=== PATIENT | female | born 1945 | race Hispanic/Latino ===

== ENCOUNTER → 2018-03-26 | Day surgery (SDC) | payer MEDICARE, OTHER ==
[2018-03-23 14:25] LABS: BASOPHILS % 0.4 % (0.0-1.0); EOSINOPHILS % 0.2 % (0.0-6.0); HEMATOCRIT 43.4 % (34.2-44.1); HEMOGLOBIN 13.7 g/dL (12.0-16.0); LYMPHOCYTES # (AUTO) 1.5 (1.0-3.2); LYMPHOCYTES % 33.9 % (18.0-39.1); MEAN CORPUSCULAR HEMOGLOBIN 28.4 pg (28-32); MEAN CORPUSCULAR HGB CONC 31.6 g/dL (31-35); MEAN CORPUSCULAR VOLUME 89.9 fL (81-99); MONOCYTES # (AUTO) 0.3 (0.2-0.8); MONOCYTES % 6.9 % (4.4-11.3); NEUTROPHILS # (AUTO) 2.6 (2.1-6.9); NEUTROPHILS % 57.3 % (38.7-80.0); PLATELET COUNT 117 x10e3/uL (140-360); RED BLOOD COUNT 4.83 x10e6/uL (3.6-5.1); RED CELL DISTRIBUTION WIDTH 15.7 % (11.7-14.4)
--- NOTE | 2018-03-23 14:36 | Diagnostic Imaging Report ---
PROCEDURE: X-RAY CHEST, TWO VIEWS COMPARISON: Patients [facility], DX, CHEST 2 VIEWS, 05/25/2015, 12:20. INDICATIONS: PORT O CATH REMOVAL PRE OP FINDINGS: Lines/tubes: MediPort catheter has been placed in the right chest wall with catheter tip in SVC. No pneumothorax. LUNGS: No consolidations or edema. PLEURA: No effusions or pneumothorax. Central eventration of right diaphragm is stable. HEART \T\ MEDIASTINUM: The heart is within normal size-limits. BONES \T\ SOFT TISSUES: No focal osseous lesions. Cholecystectomy clips are stable. CONCLUSION: No acute thoracic abnormality. Other findings as described above. Dictated by: Sohan Sosa M.D. on 03/23/2018 at 14:39 Electronically approved by: Sohan Sosa M.D. on 03/23/2018 at 14:39
[2018-03-23 14:41] LABS: ANION GAP 11.5 mmol/L (8-16); BLOOD UREA NITROGEN 17 mg/dL (7-26); BUN/CREATININE RATIO 22 (6-25); CALCIUM 9.8 mg/dL (8.4-10.2); CARBON DIOXIDE 27 mmol/L (22-29); CHLORIDE 107 mmol/L (98-107); CREATININE, SERUM 0.79 mg/dL (0.57-1.11); EST GLOMERULAR FILTRATION RATE > 60 ML/MIN (60-); GLUCOSE 88 mg/dL (74-118); POTASSIUM 3.5 mmol/L (3.5-5.1); SODIUM 142 mmol/L (136-145)
[~2018-03-26] MED LIST: ALLOPURINOL PO; BENAZEPRIL HCL10 MG PO; BENAZEPRIL PO; BUPIVACAINE 0.25%/EPI 30ML SDV INJ ONE; CEFAZOLIN SOD 1 GM VIAL ONE; DEXAMETHASONE SOD PHOS INJ 4 MG/ML VIAL ONE; FENTANYL CITRATE/PF 100MCG/2 ML INJ ONE; LEVOTHYROXINE PO; LEVOTHYROXINE50 MCG PO; LIDOCAINE HCL 2% LOCAL INJ 5 ML SDV VIAL INJ ONE; METOCLOPRAMIDE HCL 10 MG/2ML VIAL ONE; MIDAZOLAM HCL 2 MG/2 ML VIAL ONE; MYRBETRIQ50 MG PO; OMEPRAZOLE PO; OMEPRAZOLE40 MG PO; ONDANSETRON HCL INJ 2 MG/ML VIAL ONE; PROPOFOL IV EMULSION 10 MG/ML 20 ML VIAL ONE; SEVOFLURANE INHAL SOLN 250 ML PEN BTL ONE
--- OUTSIDE RECORDS SUMMARY | 2018-03-26 07:24 | XMS REPORT | Clinical Summary ---
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 Disp. Refills Start End Date Status Date benazepril (LOTENSIN) 5 every morning. 0 04/26/20 Active MG tablet 17 levothyroxine (SYNTHROID, every morning. 0 04/10/20 Active LEVOXYL) 25 mcg tablet 17 omeprazole (PriLOSEC) 20 Take 20 mg by mouth Active MG capsule daily. azelastine (ASTELIN) 137 U 1 SPR IEN BID 09/25/20 Active mcg (0.1 %) nasal spray 17 fexofenadine (NEIL) Take by mouth daily. Active 180 MG tablet acetaminophen (TYLENOL) Take 325 mg by mouth Active 325 MG tablet every 6 (six) hours as needed for fever. ERTAPENEM SODIUM (INVANZ Infuse 1,000 mg into a 07/23/20 Discontin IV) venous catheter daily. 17 ued except Monday and monday traMADol (ULTRAM) 50 mg Take 1 tablet (50 mg 60 tablet 0 10/19/20 Discontin tablet total) by mouth every 6 17 17 ued (six) hours as needed for moderate pain for up to 30 days. traMADol (ULTRAM) 50 mg Take 1 tablet (50 mg 60 tablet 0 10/19/20 Discontin tablet total) by mouth every 6 17 17 ued (six) hours as needed for moderate pain for up to 30 days. doxycycline (VIBRAMYCIN) 03/05/20 03/26/20 Discontin 100 MG capsule 18 18 ued Hospital, Clinic, or Ordered Dose Route Frequency Start End Date Status Other Facility Date Administered Medication cefTRIAXone (ROCEPHIN) 1 g IV once 01/16/20 01/16/20 Discontin injection 1 g 18 18 ued Active Problems Problem Noted Date UTI (urinary tract infection) 10/11/2017 Complicated urinary tract infection 08/11/2017 Urinary tract infection, recurrent 08/10/2017 Hydronephrosis with infection 07/17/2017 Encounters Date Type Specialty Care Team Description 01/15/2018 [facility] Urology Meng Cleary MD Encounter 01/15/2018 Procedure Pass Urology 01/15/2018 Surgery UrologMeng Louise MD CYSTOSCOPY BILATERAL URETERAL CATHETERIZATION 01/12/2018 [facility] [place] 01/10/2018 Pre-Admit Pre-Admission Testing Meng Cleary MD Pre- op testing (Primary Testing Dx) Appointment 11/29/2017 [facility] General Internal Medicine Meng Cleary MD - Encounter 12/08/2017 10/17/2017 Procedure Pass Urology 10/17/2017 Surgery Urology Emanuel Jane MD CYSTO , REMOVAL URETERAL STENT 10/11/2017 [facility] General Internal Medicine Mann Park MD Acute cystitis without - Encounter hematuria (Primary Dx); 10/19/2017 Hydronephrosis with infection 10/11/2017 Orders Only General Internal Medicine Mann Park MD 08/14/2017 Procedure Pass Urology 08/14/2017 Surgery Urology Meng Cleary MD CYSTO BILATERAL RETROGRADE POLYLOGRAM AND RIGHT STENT EXCHNAGE 08/13/2017 Anesthesia Urology Selvin Akhtar MD Event 08/09/2017 [facility] Obstetrics and Gynecology Meng Cleary MD - Encounter 08/19/2017 08/08/2017 Orders Only UrologMeng Louise MD 08/07/2017 Telephone Infectious Diseases Jessica Reaves RN 08/04/2017 Lab Lab Meng Cleary MD 07/19/2017 Procedure Pass Urology 07/19/2017 Surgery Urology eMng Cleary MD CYSTOSCOPY, RIGHT RETROGRADE PYELOGRAM, RIGHT URETERAL STENT EXCHANGE 07/17/2017 [facility] General Internal Medicine Meng Cleary MD Urinary tract infection - Encounter with hematuria, site 07/23/2017 unspecified (Primary Dx); Essential hypertension; Hypothyroidism, unspecified type; Hydronephrosis with infection 07/17/2017 Documentation Urology Meng Cleary MD 07/12/2017 Pre-Admit Pre-Admission Testing Meng Cleary MD Preop testing (Primary Testing Dx) Appointment 07/12/2017 Anesthesia Urology Taryn Kessler, APOLLO Event after 03/25/2017 Immunizations Name Dates Previously Given Next Due FLUCELVAX QUAD PF (0.5mL 07/17/2017 syringe) Social History Tobacco Use Types Packs/Day Years Used Date Never Smoker Smokeless Tobacco: Never Used Alcohol Use Drinks/Week oz/Week Comments No Sex Assigned at Date Recorded Not on file Last Filed Vital Signs Vital Sign Reading Time Taken Blood Pressure 127/60 01/15/2018 3:00 PM CDT Pulse 68 01/15/2018 3:00 PM CDT Temperature 36.8 C (98.2 F) 01/15/2018 3:00 PM CDT Respiratory Rate 14 01/15/2018 3:00 PM CDT Oxygen Saturation 96% 01/15/2018 3:00 PM CDT Inhaled Oxygen - - Concentration Weight 69.9 kg (154 lb 3.2 oz) 01/15/2018 12:12 PM CDT Height 157.5 cm (5' 2") 01/10/2018 11:52 AM CDT Body Mass Index 28.2 01/15/2018 12:12 PM CDT Plan of Treatment Health Maintenance Due Date Last Done Comments BREAST CANCER SCREENING 1997 COLON CANCER SCREENING 1997 SHINGRIX VACCINE (#1) 1997 ZOSTER VACCINE 2007 PNEUMOCOCCAL 2012 POLYSACCHARIDE VACCINE AGE 65 AND OVER PNEUMOCOCCAL-13 2012 INFLUENZA VACCINE 05/23/2018 07/17/2017 Implants Implanted Type Area Rotary Cutter Device Expiration Model / Identifier Date Serial / Lot Catheter Uretl 6/10fr 50cm Flx-Tp Surgical N/A: N/A [employer] [id number] / Dlmn Std Accs - [id number] Implants; / Implanted: 08/14/2017 (Quantity not Expanders; on file) Extenders; Surgical Wires Stent Uretl S-Flx [place] [facility] N/A: N/A [place] [employer] 2018 [id number] / Retro-Inject 8.2fr 22-32cm Mltlen - Implants / [id number] or Sets [id number] Implanted: 07/19/2017 (Quantity not on file) Stent Uretl S-Flx [place] [facility]rological N/A: N/A [place] [employer] 2019 [id number] / Retro-Inject 8.2fr 22-32cm Mltlen - Implants / [id number] or Sets [id number] Implanted: 08/14/2017 (Quantity not on file) Port A Cath Procedures Procedure Name Priority Date/Time Associated Diagnosis Comments SD AN ELECTIVE Routine 01/15/2018 SUPRAGLOTTIC AIRWAY 1:41 PM CDT Procedure Note - Regla Posey CRNA - 01/15/2018 1:41 PM CDT Airway Date/Time: 01/15/2018 1:31 PM Performed by: REGLA POSEY Authorized by: TYE MANCUSO Location: OR Urgency: Elective Difficult Airway: No Resident/C RNA/AA: REGLA POSEY Performed by: resident/C RNA/AA Preoxygena gigi with 100% O2: Yes Mask Ventilatio n: Not attempted Final Airway Type: Supraglott ic airway Final LMA: Classic LMA Size: 4 Number of Attempts at Approach: 1 CYSTOSCOPY BILATERAL 01/15/2018 UTI (urinary tract URETERAL CATHETERIZATION 1:30 PM CDT infection) Special Needs REQ 1330 START, EST 1HR CYSTO , REMOVAL URETERAL 10/17/2017 Right Hydronephrosis STENT 3:25 PM 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 SD AN ELECTIVE Routine 08/14/2017 SUPRAGLOTTIC AIRWAY 2:01 PM CDT Procedure Note - Kavon Mittal CRNA - 08/14/2017 2:01 PM CDT Airway Date/Time: 08/14/2017 1:51 PM Performed by: KAVON MITTAL Authorized by: JUDI CHILD Location: OR Urgency: Elective Difficult Airway: No Resident/C RNA: KAVON MITTAL Performed by: resident/C RNA Preoxygena gigi with 100% O2: Yes C-spine Precaution s Maintained Throughout : Yes Mask Ventilatio n: Easy mask Final Airway Type: Supraglott ic airway Final LMA: Classic LMA Size: 4 Number of Attempts at Approach: 2 CYSTO BILATERAL 08/14/2017 RIGHT HYDRONEPHROSIS AND RETROGRADE POLYLOGRAM AND 2:00 PM CDT UTI RIGHT STENT EXCHNAGE SD AN ELECTIVE Routine 07/19/2017 SUPRAGLOTTIC AIRWAY 10:42 AM CDT Procedure Note - Regla Posey [facility] - 07/19/2017 10:42 AM CDT Airway Date/Time: 07/19/2017 10:42 AM Performed by: REGLA POSEY Authorized by: ETHAN RETANA Location: OR Urgency: Elective Difficult Airway: No Resident/C RNA: REGLA POSEY Performed by: resident/C RNA Preoxygena gigi with 100% O2: Yes C-spine Precaution s Maintained Throughout : Yes Mask Ventilatio n: Easy mask Final Airway Type: Supraglott ic airway Final LMA: Classic LMA Size: 4 Number of Attempts at Approach: 1 CYSTOSCOPY, RIGHT 07/19/2017 Hydronephrosis of right RETROGRADE PYELOGRAM, 10:00 AM CDT kidney RIGHT URETERAL STENT EXCHANGE Special Needs REQ 0715 START after 03/25/2017 Results * OR FL < 1 Hour (01/15/2018 2:18 PM) Specimen Performing Laboratory [facility] [address] [place] [address] Narrative EXAMINATION:OR [place] 1 HOUR C-arm fluoroscopy was requested in OR. START - 1345 FINISH - 1418 FLUORO - 15 SEC 8.2 mGR 0 FILMS CYSTOSCOPY MAIN OR CYSTO 2 AM IMPRESSION: Separate operative report will be issued by the physician performing the procedure. [id number] Procedure Note Interface, Radiology Results Incoming - 01/15/2018 10:21 PM CDT EXAMINATION: OR FL 1 HOUR C-arm fluoroscopy was requested in OR. START - 1345 FINISH - 1418 FLUORO - 15 SEC 8.2 mGR 0 FILMS CYSTOSCOPY MAIN OR CYSTO 2 AM IMPRESSION: Separate operative report will be issued by the physician performing the procedure. [id number] * Gram stain (01/15/2018 1:54 PM) Only the most recent of 13 results within the time period is included. Component Value Ref Range Gram stain result Occasional WBC's Moderate Gram negative rods Comment: Specimen Information Specimen Source: Urine Specimen Site: Kidney right Specimen Performing Laboratory Urine [facility] DEPARTMENT OF PATHOLOGY AND GENOMIC MEDICINE [address] [place] [address] * Urine culture (01/15/2018 1:54 PM) Only the most recent of 13 results within the time period is included. Component Value Ref Range Urine culture isolate Pseudomonas aeruginosa >10-5 cfu/ml This organism is multi-drug resistant. This organism is NOT a carbapenemase producing organism. (A) Comment: Specimen Information Specimen Source: Urine Specimen Site: Kidney right Specimen Performing Laboratory Urine [facility] DEPARTMENT OF PATHOLOGY AND GENOMIC MEDICINE [address] [place] [address] Organism Antibiotic Method Susceptibility Pseudomonas aeruginosa Amikacin SANJUANA 8 mcg/mL: Susceptible Pseudomonas aeruginosa Aztreonam SANJUANA >16 mcg/mL: Resistant Pseudomonas aeruginosa Ceftazidime SANJUANA 16 mcg/mL: Resistant Pseudomonas aeruginosa Ciprofloxacin SANJUANA >2 mcg/mL: Resistant Pseudomonas aeruginosa Cefipime SANJUANA >16 mcg/mL: Resistant Pseudomonas aeruginosa Gentamicin SANJUANA 8 mcg/mL: Resistant Pseudomonas aeruginosa Imipenem SANJUANA 8 mcg/mL: Resistant Pseudomonas aeruginosa Levofloxacin SANJUANA >4 mcg/mL: Resistant Pseudomonas aeruginosa Meropenem SANJUANA >8 mcg/mL: Resistant Pseudomonas aeruginosa Tobramycin SANJUANA 2 mcg/mL: Susceptible Pseudomonas aeruginosa Piperacillin/Tazobactam SANJUANA 64/4 mcg/mL: Resistant Pseudomonas aeruginosa Polymixin B KB mm: Susceptible Pseudomonas aeruginosa Ceftazidime-Avibactam KB mm: Susceptible Pseudomonas aeruginosa Ceftolozane-Tazobactam KB mm: Susceptible * Anaerobic culture (01/15/2018 1:54 PM) Only the most recent of 3 results within the time period is included. Component Value Ref Range Anaerobic culture isolate No anaerobic organisms isolated. Comment: Specimen Information Specimen Source: Urine Specimen Site: Kidney right Specimen Performing Laboratory Urine [facility] DEPARTMENT OF PATHOLOGY AND GENOMIC MEDICINE [address] [place] [id number] * ECG Pre/Post Op (01/10/2018 11:48 AM) Only the most recent of 2 results within the time period is included. Component Value Ref Range Ventricular rate 77 Atrial rate 77 SD interval 116 QRSD interval 78 QT interval 384 QTC interval 434 P axis 1 19 QRS axis 1 -4 T wave axis 42 EKG impression Normal sinus rhythm-Low voltage QRS-Borderline ECG-In automated comparison with ECG of 12-JUL-2017 17:03,-No significant change was found- Specimen Performing Laboratory [facility] MUSE [address] [place] [address] * Urinalysis screen and microscopy, with reflex to culture (01/10/2018 11:27 AM) Only the most recent of 9 results within the time period is included. Component Value Ref Range Specimen site Clean catch Color, UA Straw Appearance, UA Hazy Specific gravity, UA 1.008 1.001 - 1.035 pH, UA 7.0 5.0 - 8.5 Protein, UA Negative Negative Glucose, UA Negative Negative Ketones, UA Negative Negative Bilirubin, UA Negative Negative Blood, UA Small (A) Negative Nitrite, UA Negative Negative Urobilinogen, UA <2.0 <2.0 Leukocyte esterase, UA Large (A) Negative Epithelial cells, UA <1 /HPF WBC, UA >180 (H) 0 - 4 /HPF RBC, UA 3 (H) 0 - 2 /HPF Bacteria, UA Moderate (A) None seen WBC clumps, UA Few (A) Yeast, UA None seen Yeast with pseudohyphae, None seen UA Specimen Performing Laboratory Urine [facility] DEPARTMENT OF PATHOLOGY AND GENOMIC MEDICINE [address] [place] [address] * Estimated GFR (01/10/2018 11:27 AM) Only the most recent of 19 results within the time period is included. Component Value Ref Range GFR Non Af Amer 83 mL/min/1.73 m2 GFR Af Amer >90 mL/min/1.73 m2 Comment: Chronic kidney disease: <60 mL/min/1.73m2 Kidney failure: <15 mL/min/1.73m2 The estimated GFR is calculated from the IDMS-traceable Modification of Diet in Renal Disease Equation. The accuracy of the calculation is poor when the creatinine is normal. Calculated values >90 mL/min/1.73m2 are not reported. This equation has not been validated in children (<18 years), women, the elderly (>70 years), or ethnic groups other than Caucasians and Americans. Specimen Performing Laboratory Plasma specimen [facility] DEPARTMENT OF PATHOLOGY AND GENOMIC MEDICINE [address] [place] [id number] * CBC hemogram (01/10/2018 11:27 AM) Component Value Ref Range WBC 4.86 4.50 - 11.00 k/uL RBC 4.30 4.20 - 5.50 m/uL HGB 12.4 12.0 - 16.0 g/dL HCT 39.4 37.0 - 47.0 % MCV 91.6 82.0 - 100.0 fL MCH 28.8 27.0 - 34.0 pg MCHC 31.5 31.0 - 37.0 g/dL RDW - SD 49.6 37.0 - 55.0 fL MPV 10.9 8.8 - 13.2 fL Platelet count 159 150 - 400 k/uL Nucleated RBC 0.00 /100 WBC Specimen Performing Laboratory Blood [facility] DEPARTMENT OF PATHOLOGY AND GENOMIC MEDICINE [address] [place] [address] * Comprehensive metabolic panel (01/10/2018 11:27 AM) Only the most recent of 6 results within the time period is included. Component Value Ref Range Sodium 143 135 - 148 mEq/L Potassium 3.9 3.5 - 5.0 mEq/L Chloride 102 98 - 112 mEq/L CO2 28 24 - 31 mEq/L Anion gap 13 7 - 15 mEq/L Comment: Starting from January , anion gap calculation no longer incorporates potassium. Please note the change. BUN 14 8 - 23 mg/dL Creatinine 0.7 0.5 - 0.9 mg/dL Glucose 92 65 - 99 mg/dL Calcium 9.4 8.8 - 10.2 mg/dL Protein 7.0 6.3 - 8.3 g/dL Comment: 4.6-7.0 g/dL 1 week 4.4-7.6 g/dL 7 months-1year 5.1-7.3 g/dL 1-2 years 5.6-7.5 g/dL >3 years 6.0-8.0 g/dL 18-150 6.3-8.3 g/dL Albumin 3.3 (L) 3.5 - 5.0 g/dL A/G ratio 0.9 0.7 - 3.8 Alkaline phosphatase 122 (H) 35 - 104 U/L AST 49 (H) 10 - 35 U/L ALT 34 5 - 50 U/L Total bilirubin 0.4 0.0 - 1.2 mg/dL Specimen Performing Laboratory Plasma specimen [facility] DEPARTMENT OF PATHOLOGY AND GENOMIC MEDICINE [address] [place] [address] * CBC with platelet and differential (12/06/2017 4:10 AM) Only the most recent of 18 results within the time period is included. Component Value Ref Range WBC 3.93 (L) 4.50 - 11.00 k/uL RBC 3.64 (L) 4.20 - 5.50 m/uL HGB 10.6 (L) 12.0 - 16.0 g/dL HCT 34.3 (L) 37.0 - 47.0 % MCV 94.2 82.0 - 100.0 fL MCH 29.1 27.0 - 34.0 pg MCHC 30.9 (L) 31.0 - 37.0 g/dL RDW - SD 52.4 37.0 - 55.0 fL MPV 9.9 8.8 - 13.2 fL Platelet count 182 150 - 400 k/uL Nucleated RBC 0.00 /100 WBC Neutrophils 48.5 39.0 - 69.0 % Lymphocytes 38.7 25.0 - 45.0 % Monocytes 8.4 0.0 - 10.0 % Eosinophils 1.3 0.0 - 5.0 % Basophils 0.8 0.0 - 1.0 % Immature granulocytes 2.3 (H)Comment: "Immature granulocytes" 0.0 - 1.0 % (promyelocytes, myelocytes, metamyelocytes) Specimen Performing Laboratory Blood [facility] DEPARTMENT OF PATHOLOGY AND [address] [address] * Cortisol level, random (12/05/2017 9:30 AM) Only the most recent of 3 results within the time period is included. Component Value Ref Range Cortisol, random 13 ug/dL Comment: Reference Ranges are not established for non-timed Cortisol levels. Reference Range for Timed Cortisol: 6 - 10 AM 6 - 18 ug/dl 4 - 8 PM 3 - 11 ug/dl Specimen Performing Laboratory Plasma specimen [facility] DEPARTMENT OF PATHOLOGY AND GENOMIC MEDICINE [address] [place] [phone] * LDH (12/05/2017 8:35 AM) Component Value Ref Range LDH 209 87 - 225 U/L Specimen Performing Laboratory Plasma specimen [facility] DEPARTMENT OF PATHOLOGY AND [address] [address] * Hepatic function panel (12/05/2017 8:35 AM) Only the most recent of 2 results within the time period is included. Component Value Ref Range Albumin 3.0 (L) 3.5 - 5.0 g/dL Total bilirubin <0.2 0.0 - 1.2 mg/dL Bilirubin direct <0.2 0.0 - 0.3 mg/dL Alkaline phosphatase 99 35 - 104 U/L Protein 6.6 6.3 - 8.3 g/dL Comment: 4.6-7.0 g/dL 1 week 4.4-7.6 g/dL 7 months-1year 5.1-7.3 g/dL 1-2 years 5.6-7.5 g/dL >3 years 6.0-8.0 g/dL 18-150 6.3-8.3 g/dL ALT 17 5 - 50 U/L AST 25 10 - 35 U/L Specimen Performing Laboratory Plasma specimen [facility] DEPARTMENT OF PATHOLOGY AND [facility] [address] [place] [phone] * Adrenocorticotropic hormone (12/05/2017 8:25 AM) Component Value Ref Range Adrenocorticotropic 11.7 7.2 - 63.3 pg/mL hormone Specimen Performing Laboratory Blood [facility] DEPARTMENT [place] [address] * Basic metabolic panel (12/05/2017 4:00 AM) Only the most recent of 13 results within the time period is included. Component Value Ref Range Sodium 142 135 - 148 mEq/L Potassium 3.8 3.5 - 5.0 mEq/L Chloride 103 98 - 112 mEq/L CO2 26 24 - 31 mEq/L Anion gap 13 7 - 15 mEq/L Comment: Starting from January , anion gap calculation no longer incorporates potassium. Please note the change. BUN 16 8 - 23 mg/dL Creatinine 0.7 0.5 - 0.9 mg/dL Glucose 122 (H) 65 - 99 mg/dL Calcium 9.1 8.8 - 10.2 mg/dL Specimen Performing Laboratory Plasma specimen [facility] DEPARTMENT OF PATHOLOGY AND [facility] [address] [place] [address] * XR Abdomen 1 Vw Portable (12/02/2017 11:40 AM) Specimen Performing Laboratory [address] [address] Narrative PROCEDURE:XR ABDOMEN 1 VW PORTABLE CLINICAL HISTORY:Distention COMPARISON:August 11, 2017 TECHNIQUE: A single view of the abdomen was performed in the AP supine projection. FINDINGS: Please note that the hemidiaphragms and upper abdomen have been excluded from the image field and cannot be evaluated. No indirect evidence of free air is seen.. No distended loops of small or large bowel are identified. No radiopaque calculus is identified in the abdomen. Curvilinear calcification is seen in the region of the left renal hilum representing a calcified atheromatous plaque. Aneurysm is identified on the recent CT scan of the abdomen performed October 14, 2017 Multiple surgical emily are seen projected over the right upper quadrant of the abdomen consistent with prior cholecystectomy. IMPRESSION: Nonspecific bowel gas pattern. [id number] . 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 FINDINGS: Please note that the hemidiaphragms and upper abdomen have been excluded from the image field and cannot be evaluated. No indirect evidence of free air is seen.. No distended loops of small or large bowel are identified. No radiopaque calculus is identified in the abdomen. Curvilinear calcification is seen in the region of the left renal hilum representing a calcified atheromatous plaque. Aneurysm is identified on the recent CT scan of the abdomen performed October 14, 2017 Multiple surgical emily are seen projected over the right upper quadrant of the abdomen consistent with prior cholecystectomy. IMPRESSION: Nonspecific bowel gas pattern. [id number] . * Urinalysis, automated with microscopy (12/01/2017 4:00 PM) Only the most recent of 5 results within the time period is included. Component Value Ref Range Color, UA Straw Appearance, UA Clear Specific gravity, UA 1.004 1.001 - 1.035 pH, UA 6.0 5.0 - 8.5 Protein, UA Negative Negative Glucose, UA Negative Negative Ketones, UA Negative Negative Bilirubin, UA Negative Negative Blood, UA Negative Negative Nitrite, UA Negative Negative Urobilinogen, UA <2.0 <2.0 Leukocyte esterase, UA Negative Negative Epithelial cells, UA <1 /HPF WBC, UA 3 0 - 4 /HPF RBC, UA <1 0 - 2 /HPF Bacteria, UA None seen None seen Yeast, UA None seen Yeast with pseudohyphae, None seen UA Specimen Performing Laboratory Urine [facility] DEPARTMENT OF PATHOLOGY AND GENOMIC MEDICINE [address] [place] [phone] * Cortisol level, AM (11/30/2017 11:32 AM) Component Value Ref Range Cortisol, AM 2 (L) 6 - 18 ug/dL Specimen Performing Laboratory Plasma specimen [facility] DEPARTMENT [place] [address] * Thyroid stimulating hormone (11/30/2017 11:32 AM) Only the most recent of 4 results within the time period is included. Component Value Ref Range TSH 2.21 0.27 - 4.20 uIU/mL Specimen Performing Laboratory Plasma specimen [facility] DEPARTMENT [place] [address] * T4, free (11/30/2017 11:32 AM) Only the most recent of 3 results within the time period is included. Component Value Ref Range T4, free 1.3 0.9 - 1.7 ng/dL Specimen Performing Laboratory Plasma specimen [facility] DEPART[place] [address] * Immunoglobulin G (11/30/2017 11:01 AM) Component Value Ref Range IgG <300 (L) 700 - 1,600 mg/dL Specimen Performing Laboratory Plasma specimen [facility] DEPARTMENT [place] [address] * US Renal (11/29/2017 4:40 PM) Only the most recent of 3 results within the time period is included. Specimen Performing Laboratory [facility] [address] [place] [address] Narrative EXAMINATION:US RENAL CLINICAL HISTORY:HYDRONEPHROSIS TECHNIQUE: Sonographic imaging over the kidneys was performed. COMPARISON:CT of the abdomen and pelvis dated 10/14/2017 FINDINGS: 1.The right kidney is normal size measuring 10.3 cm in long axis. The kidney has normal echogenicity. Vascular flow is unremarkable. There is no evidence of hydronephrosis, perinephric fluid, mass or calculus. 2.The left kidney isnormal size measuring 10.6 cm in long axis. The kidney has normal echogenicity. Vascular flow is unremarkable. There is no evidence of hydronephrosis, perinephric fluid, mass or calculus. 3.The bladder is unremarkable. IMPRESSION: No evidence of hydronephrosis. [facility]-[id number] Procedure Note Hm Interface, Radiology Results Incoming - 11/29/2017 4:58 PM 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 EXAMINATION: US RENAL CLINICAL HISTORY: HYDRONEPHROSIS TECHNIQUE: Sonographic imaging over the kidneys was performed. COMPARISON: CT of the abdomen and pelvis dated 10/14/2017 FINDINGS: 1. The right kidney is normal size measuring 10.3 cm in long axis. The kidney has normal echogenicity. Vascular flow is unremarkable. There is no evidence of hydronephrosis, perinephric fluid, mass or calculus. 2. The left kidney is normal size measuring 10.6 cm in long axis. The kidney has normal echogenicity. Vascular flow is unremarkable. There is no evidence of hydronephrosis, perinephric fluid, mass or calculus. 3. The bladder is unremarkable. IMPRESSION: No evidence of hydronephrosis. [facility]-[id number] * Blood culture, aerobic & anaerobic (11/29/2017 1:25 PM) Only the most recent of 6 results within the time period is included. Component Value Ref Range Blood culture isolate No growth after 5 days of incubation. Comment: Specimen Information Specimen Source: Blood Specimen Site: Arm, right Specimen Performing Laboratory Blood - Arm, right [facility] DEPARTMENT OF PATHOLOGY AND GENOMIC MEDICINE [address] [place] [address] * Smear review (10/19/2017 4:40 AM) Only the most recent of 3 results within the time period is included. Component Value Ref Range Platelet slide review Carrie slt decr Anisocytosis Moderate Polychromasia Moderate Tear drop cells Occasional Ovalocytes Moderate Specimen Performing Laboratory [facility] DEPARTMENT OF PATHOLOGY AND GENOMIC MEDICINE [address] [place] [address] * Respiratory pathogen panel (10/18/2017 5:12 PM) Component Value Ref Range Respiratory pathogen Positive for Rhinovirus/Enterovirus panel Negative for all other pathogens tested: Negative for Adenovirus Negative for Coronavirus HKU1 Negative for Coronavirus NL63 Negative for Coronavirus 229E Negative for Coronavirus OC43 Negative for Human Metapneumovirus Negative for Influenza A Negative for Influenza A/H1 Negative for Influenza A/H3 Negative for Influenza A/H1-2009 Negative for Influenza B Negative for Parainfluenza Virus 2 Negative for Parainfluenza Virus 3 Negative for Parainfluenza Virus 4 Negative for Respiratory Syncytial Virus Negative for Bordetella pertussis Negative for Chlamydophila pneumoniae Negative for Mycoplasma pneumoniae This real-time PCR assay detects the presence of nucleic acids (RNA or DNA) for the respiratory pathogens listed. A result of "Not-detected" does not exclude the possibility of the presence of one or more pathogens at concentrations less than the detectable limits of the assa (A) Comment: Specimen Information Specimen Source: Nares Specimen Site: Left Respiratory pathogen Positive for Parainfluenza 1 virus (A) panel Specimen Performing Laboratory Nares - Left [facility] DEPARTMENT OF PATHOLOGY AND GENOMIC MEDICINE [address] [place] [id number] * Estradiol by TMS (10/15/2017 9:55 AM) Component Value Ref Range Estradiol by TMS 1.8 pg/mL Comment: Females: Pre-menopausal: Early follicular 30.0-100.0 pg/mL Pre-menopausal: Late follicular 100.0-400.0 pg/mL Pre-menopausal: Luteal 50.0-150.0 pg/mL Post-menopausal 2.0-21.0 pg/mL REFERENCE INTERVAL: Estradiol by TMS Access complete set of age- and/or gender-specific reference intervals for this test in the [facility] Test Directory (everyArt). Test developed and characteristics determined by [facility]. See Compliance Statement B: everyArt/CS Performed by [facility], [address] [place] [id number] [email or web address], Jeovany Salguero MD - Lab. Director Specimen Performing Laboratory Serum [address] [address] * Cancer antigen 19-9 (10/15/2017 9:55 AM) Only the most recent of 2 results within the time period is included. Component Value Ref Range CA 19-9 7 0 - 35 U/mL Comment: The [employer] 8000 CA19-9 immunoassay was used. Results obtained with different assay methods or kits should not be used interchangeably and may be different. Specimen Performing Laboratory Plasma specimen [facility] DEPARTMENT OF PATHOLOGY AND GENOMIC MEDICINE [address] [place] [address] * Alpha fetoprotein (10/15/2017 9:55 AM) Component Value Ref Range Alpha fetoprotein 2.8 0.0 - 8.3 ng/mL Comment: The Ramu 8000 AFP immunoassay was used. Results obtained with different assay methods or kits should not be used interchangeably and may be different. Specimen Performing Laboratory Serum [facility] DEPARTMENT OF PATHOLOGY AND GENOMIC MEDICINE [address] [place] [address] * Cancer antigen 125 (10/15/2017 9:55 AM) Only the most recent of 2 results within the time period is included. Component Value Ref Range CA 125 11 0 - 35 U/mL Comment: The Cap[employer] Ramu 8000 CA125 immunoassay was used. Results obtained with different assay methods or kits should not be used interchangeably and may be different. Specimen Performing Laboratory Plasma specimen [facility] DEPARTMENT [place] [address] * hCG qualitative, serum screen (10/15/2017 9:55 AM) Component Value Ref Range hCG qualitative, serum NegativeComment: Sensitivity of HCG test: 25 mIU/mL Specimen Performing Laboratory Blood [facility] [place] [address] * Lactic acid level (10/15/2017 9:55 AM) Component Value Ref Range Lactic acid 1.2 0.5 - 2.2 mmol/L Specimen Performing Laboratory Plasma specimen [facility] [place] [address] * Carcinoembryonic antigen (CEA) (10/15/2017 9:55 AM) Component Value Ref Range CEA 2.7 0.0 - 3.8 ng/mL Comment: Reference range for heavy smokers: 0.0 - 5.5 ng/mL The CAPO Ramu 8000 CEA immunoassay was used. Results obtained with different assay methods or kits should not be used interchangeably and may be different. Specimen Performing Laboratory Serum [facility] [address] * CT Abdomen Pelvis W Contrast (10/14/2017 1:22 PM) Specimen Performing Laboratory [facility] [address] [place] [address] Narrative EXAMINATION:CT ABDOMEN PELVIS W CONTRAST CLINICAL HISTORY:ABDOMINAL PAIN TECHNIQUE: Multiple axial images of the abdomen and pelvis were obtained following intravenous administration of iodinated contrast. Sagittal and coronal computerized reformatted images were also obtained..All CT images were acquired using radiation dose lowering technique with automated exposure control and / or iterative reconstruction. COMPARISON:None IMPRESSION: ABDOMEN: 1. Minimal scarring in the left lung base, lung bases otherwise clear. 2.Mild diverticulosis in the distal colon. Prominent fecal material within the cecum and proximal ascending colon, may indicate constipation. 3.Small hiatal hernia. Bowel loop show no evidence of obstruction or acute inflammation. 4.However, there is haziness surrounding the mesenteric venous branches centrally in the root of the small bowel mesentery at and to the left of midline. These branches appear patent, with no portal venous system thrombosis identified. As well, there is no worsening of the mesenteric vessels to indicate a volvulus. The exact etiology is uncertain. Mesenteric panniculitis is a consideration, though typically associated with some lymphadenopathy, which is absent in this case. 5.Cholecystectomy. Prominence of the intrahepatic bile ducts is likely reservoir effect. The common bile duct measures 7 mm, within normal range. 6.Tiny hypodensities in the liver are too small to characterize, though likely cysts. Liver otherwise unremarkable. 7.Pancreas, adrenal glands demonstrate nothing unusual. Atherosclerotic plaque in the abdominal aorta without evidence of AAA. 8.Small cysts versus pseudocyst in the spleen, and calcified granulomata. 9.Tiny renal hypodensities bilaterally are too small to contrast, though likely cysts. Mild multifocal scarring in the right kidney. No hydronephrosis on either side. A right sided ureteral stent is present, and there is mild right hydroureter and periureteral stranding. However, there is no hydronephrosis. This may be reactive to recent placement of the stent, though ascending bladder infection is also consideration. Left ureter and renal collecting system unremarkable. PELVIS: 1. No free fluid or lymphadenopathy identified within the abdomen or pelvis. No fluid collection is identified either 2.Hysterectomy. Urinary bladder wall is slightly prominent with some minimal stranding, and this may indicate cystitis, also accounting for the appearance of the right ureter. It can be correlated with urinalysis. 3.Old healed left lower rib fractures. 4.Small lucent lesions within the bony pelvis, such as seen on series 2 images 86 and 87 at the top of the right iliac bone. Correlation with any history of multiple myeloma or metastatic disease is recommended. SUMMARY: Inflammatory stranding in the root of the small bowel mesentery likely accounting for the abdominal pain, though the underlying etiology is uncertain. Mild right hydroureter with adjacent stranding, and perivesical stranding raising possibility of cystitis with ascending bladder infection. Questionable tiny lytic lesions in the bony pelvis raising possibility of multiple myeloma or metastatic disease. Other incidental findings, see above. [facility]-[id number] Procedure Note Hm Interface, Radiology Results Incoming - 10/14/2017 1:47 PM 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 EXAMINATION: CT ABDOMEN PELVIS W CONTRAST CLINICAL HISTORY: ABDOMINAL PAIN TECHNIQUE: Multiple axial images of the abdomen and pelvis were obtained following intravenous administration of iodinated contrast. Sagittal and coronal computerized reformatted images were also obtained.. All CT images were acquired using radiation dose lowering technique with automated exposure control and / or iterative reconstruction. COMPARISON: None IMPRESSION: ABDOMEN: 1. Minimal scarring in the left lung base, lung bases otherwise clear. 2. Mild diverticulosis in the distal colon. Prominent fecal material within the cecum and proximal ascending colon, may indicate constipation. 3. Small hiatal hernia. Bowel loop show no evidence of obstruction or acute inflammation. 4. However, there is haziness surrounding the mesenteric venous branches centrally in the root of the small bowel mesentery at and to the left of midline. These branches appear patent, with no portal venous system thrombosis identified. As well, there is no worsening of the mesenteric vessels to indicate a volvulus. The exact etiology is uncertain. Mesenteric panniculitis is a consideration, though typically associated with some lymphadenopathy, which is absent in this case. 5. Cholecystectomy. Prominence of the intrahepatic bile ducts is likely reservoir effect. The common bile duct measures 7 mm, within normal range. 6. Tiny hypodensities in the liver are too small to characterize, though likely cysts. Liver otherwise unremarkable. 7. Pancreas, adrenal glands demonstrate nothing unusual. Atherosclerotic plaque in the abdominal aorta without evidence of AAA. 8. Small cysts versus pseudocyst in the spleen, and calcified granulomata. 9. Tiny renal hypodensities bilaterally are too small to contrast, though likely cysts. Mild multifocal scarring in the right kidney. No hydronephrosis on either side. A right sided ureteral stent is present, and there is mild right hydroureter and periureteral stranding. However, there is no hydronephrosis. This may be reactive to recent placement of the stent, though ascending bladder infection is also consideration. Left ureter and renal collecting system unremarkable. PELVIS: 1. No free fluid or lymphadenopathy identified within the abdomen or pelvis. No fluid collection is identified either 2. Hysterectomy. Urinary bladder wall is slightly prominent with some minimal stranding, and this may indicate cystitis, also accounting for the appearance of the right ureter. It can be correlated with urinalysis. 3. Old healed left lower rib fractures. 4. Small lucent lesions within the bony pelvis, such as seen on series 2 images 86 and 87 at the top of the right iliac bone. Correlation with any history of multiple myeloma or metastatic disease is recommended. SUMMARY: Inflammatory stranding in the root of the small bowel mesentery likely accounting for the abdominal pain, though the underlying etiology is uncertain. Mild right hydroureter with adjacent stranding, and perivesical stranding raising possibility of cystitis with ascending bladder infection. Questionable tiny lytic lesions in the bony pelvis raising possibility of multiple myeloma or metastatic disease. Other incidental findings, see above. [facility]-[id number] * Manual differential (10/14/2017 5:45 AM) Only the most recent of 4 results within the time period is included. Component Value Ref Range Manual differential PERFORMED Neutrophils 63.0 39.0 - 69.0 % Lymphocytes 31.0 25.0 - 45.0 % Monocytes 4.0 0.0 - 10.0 % Eosinophils 2.0 0.0 - 5.0 % Basophils 0.0 0.0 - 1.0 % Metamyelocytes 0 % Promyelocytes 0 % Platelet slide review Carrie slt decr Ovalocytes Moderate Specimen Performing Laboratory [facility] DEPARTMENT OF PATHOLOGY AND GENOMIC MEDICINE [address] [place] [address] * US Gallbladder (10/13/2017 6:10 PM) Specimen Performing Laboratory [facility] [address] [place] [address] Narrative EXAMINATION:US GALLBLADDER CLINICAL HISTORY:Ductal obstruction COMPARISON:None. FINDINGS: Gallbladder: Prior cholecystectomy. CBD:3 mm , within normal limits. Portal vein: The portal vein demonstrates normal hepatopedal flow. The portal vein measures 0.6 cm. IMPRESSION: Prior cholecystectomy. No evidence of ductal dilatation. [facility]-[id number] Procedure Note Interface, Radiology Results Incoming - 10/13/2017 6:53 PM 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 EXAMINATION: US GALLBLADDER CLINICAL HISTORY: Ductal obstruction COMPARISON: None. FINDINGS: Gallbladder: Prior cholecystectomy. CBD: 3 mm , within normal limits. Portal vein: The portal vein demonstrates normal hepatopedal flow. The portal vein measures 0.6 cm. IMPRESSION: Prior cholecystectomy. No evidence of ductal dilatation. [facility]-[id number] * XR Chest 2 Vw (10/13/2017 3:33 PM) Specimen Performing Laboratory [address] [address] Narrative Examination:XR CHEST 2 VW Clinical History: Cough Comparison: None. Technique: Frontal and lateral views of the chest were obtained. Findings: Lungs and pleural surfaces are clear. Cardiomediastinal silhouette and pulmonary vascularity are within normal limits. Bones are intact. Right-sided port catheter tip is in the lower SVC. Impression: No active cardiopulmonary disease identified. [facility]-[id number] Procedure Note Hm Interface, Radiology Results Incoming - 10/13/2017 3:38 PM 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 Examination: XR CHEST 2 VW Clinical History: Cough Comparison: None. Technique: Frontal and lateral views of the chest were obtained. Findings: Lungs and pleural surfaces are clear. Cardiomediastinal silhouette and pulmonary vascularity are within normal limits. Bones are intact. Right-sided port catheter tip is in the lower SVC. Impression: No active cardiopulmonary disease identified. [facility]-[id number] * Lipase level (10/13/2017 6:00 AM) Component Value Ref Range Lipase 26 13 - 60 U/L Specimen Performing Laboratory Plasma specimen [facility] DEPARTMENT OF PATHOLOGY AND GENOMIC MEDICINE [address] [place] [address] * Amylase level (10/13/2017 6:00 AM) Component Value Ref Range Amylase 29 28 - 100 U/L Specimen Performing Laboratory Plasma specimen [facility] DEPARTMENT OF PATHOLOGY AND GENOMIC MEDICINE [address] [place] [address] * Partial thromboplastin time, activated (10/11/2017 8:22 PM) Component Value Ref Range PTT 57.5 (H) 23.0 - 36.0 sec Comment: PTT therapeutic range for unfractionated heparin is 61.0-112.0 seconds which corresponds to Anti-Xa 0.3-0.7 U/ml. Specimen Performing Laboratory Blood [facility] DEPARTMENT OF PATHOLOGY AND GENOMIC MEDICINE [address] [place] [address] * Prothrombin time with INR (10/11/2017 8:22 PM) Only the most recent of 2 results within the time period is included. Component Value Ref Range Prothrombin time 13.7 12.0 - 15.0 sec INR 1.0 Comment: The International Normalized Ratio (INR) is a therapeutic monitoring tool for patients who are stable on oral anticoagulant therapy. An INR of 2.0-3.0 is suggested for deep vein thrombosis/pulmonary embolism. Specimen Performing Laboratory Blood [facility] DEPARTMENT OF PATHOLOGY AND GENOMIC MEDICINE [address] [place] [address] * Magnesium level (10/11/2017 8:22 PM) Only the most recent of 3 results within the time period is included. Component Value Ref Range Magnesium 2.1 1.6 - 2.4 mg/dL Specimen Performing Laboratory Plasma specimen [facility] DEPARTMENT OF PATHOLOGY AND GENOMIC MEDICINE [address] [place] [address] * Hemoglobin A1c (10/11/2017 8:22 PM) Component Value Ref Range Hemoglobin A1C 6.6 (H) 4.0 - 5.6 % Comment: HbA1c cutoffs for diagnosing diabetes: 4.0% - 5.6%=normal 5.7% - 6.4%=increased risk for diabetes (prediabetes) >=6.5%=diabetes Goals for glycemic control (ADA 2016) < 7.0% Target for non adults with diabetes. More or less stringent targets may be appropriate for individual patients. <7.5% Target for Children and adolescents with type 1 diabetes. Specimen Performing Laboratory Blood [facility] DEPARTMENT OF PATHOLOGY AND GENOMIC MEDICINE [address] [place] [address] * FL < 1 Hour (08/14/2017 2:15 PM) [place]imen [place] [address] Narrative IMPRESSION:C-arm Fluoroscopy under 1 hour was provided in the OR for the referring physician.A radiologist was not present during the procedure. Refer to the Operative report issued by the performing provider for procedure details. Procedure Note Interface, Radiology Results Incoming - 08/14/2017 2:44 PM CDT IMPRESSION: C-arm Fluoroscopy under 1 hour was provided in the OR for the referring physician. A radiologist was not present during the procedure. Refer to the Operative report issued by the performing provider for procedure details. * XR Abdomen 1 Vw (08/11/2017 3:29 PM) Specimen Performing Laboratory [address] [address] Narrative EXAMINATION: XR ABDOMEN 1 VW CLINICAL HISTORY: pyelonephritis recurrent COMPARISON: Fluoroscopic abdominal radiographs, obtained on 07/12/1717. FINDINGS: Large amount of stool is seen throughout the length of the colon. There are no air-fluid levels or free air on this supine view. No unusual calcifications are seen. Again noted are postoperative changes from cholecystectomy. A double-J ureteral stent is again seen on the right, in satisfactory position. The bones remain demineralized. IMPRESSION: Probable constipation. Ureteral stent in place. Status post cholecystectomy. [facility]-[id number] Procedure Note Interface, Radiology Results Incoming - 08/11/2017 3:54 PM CDT EXAMINATION: XR ABDOMEN 1 VW CLINICAL HISTORY: pyelonephritis recurrent COMPARISON: Fluoroscopic abdominal radiographs, obtained on 07/12/1717. FINDINGS: Large amount of stool is seen throughout the length of the colon. There are no air-fluid levels or free air on this supine view. No unusual calcifications are seen. Again noted are postoperative changes from cholecystectomy. A double-J ureteral stent is again seen on the right, in satisfactory position. The bones remain demineralized. IMPRESSION: Probable constipation. Ureteral stent in place. Status post cholecystectomy. [facility]-[id number] * Tobramycin level, trough (07/20/2017 4:00 AM) Component Value Ref Range Tobramycin, trough 0.41 (L) 0.50 - 2.00 ug/mL Specimen Performing Laboratory Plasma specimen [facility] DEPARTMENT OF PATHOLOGY AND GENOMIC MEDICINE [address] [place] [address] * FL Pyelogram Retrograde (07/19/2017 11:09 AM) Specimen Performing Laboratory [facility] [address] [place] [address] * Phosphorus level (07/19/2017 4:00 AM) Only the most recent of 2 results within the time period is included. Component Value Ref Range Phosphorus 3.2 2.4 - 4.5 mg/dL Specimen Performing Laboratory Plasma specimen [facility] DEPARTMENT OF PATHOLOGY AND GENOMIC MEDICINE [address] [place] [address] * Ionized calcium (07/19/2017 4:00 AM) Only the most recent of 2 results within the time period is included. Component Value Ref Range pH 7.43 Ionized calcium 1.15 1.11 - 1.32 mmol/L Specimen Performing Laboratory Plasma specimen [facility] DEPARTMENT OF PATHOLOGY AND GENOMIC MEDICINE [address] [place] [address] * PV duplex venous upper extremity (07/18/2017 10:00 AM) Specimen Performing Laboratory [facility] [address] [place] [address] Narrative Vascular Ultrasound Laboratory Upper Extremity Venous Report [address] [place] [address] Pat.Name:DESTINEY TELLEZ Pat.ID:[id number] St.Date: 07/18/2017 Refer.MD:KIARA BEAN MD Exam Time: 9:11:00 AMStudy Type:UE Venous DOBAge:1945,72Y Sex: FEMALE Sonogrphr: Sharan Hodges, RDMS, RVTPat. Stat.:Inpatient Room:[id number]: , CPT - 4: 51979 Echo Event ID:[id number] Order ID:[id number] Reason for Study:Bilateral upper extremity edema per ordering physician. History of Non-Hodgkin Lymphoma 2015 s/p METS lymph node and bone s/p chemo, right hydronephrosis due to METS. Race:C SUMMARY: DUPLEX SCAN OBSERVATIONS Right Left IJNormal Normal SubclavianPulsatile Pulsatile AxillaryNormal Normal BrachialNormal Normal BasilicNormal Normal CephalicNormal Normal RIGHT:There is normal compressibility and no evidence of echogenic material noted within the lumen of the visualized veins. Colorflow and Doppler signals are normal. LEFT: There is normal compressibility and no evidence of echogenic material noted within the lumen of the visualized veins. Colorflow and Doppler signals are normal. PRELIMINARY FINDINGS 1.No evidence of thrombosis noted in the visualized veins. 2.Focally elevated velocities in what appears to be the innominate veins, bilaterally. No evidence of echogenic material noted within the lumen. Pulsatility is noted in the aforementioned veins. PHYSICIAN INTERPRETATION 1.Venous examination of both upper extremities and neck demonstrates no evidence of venous thrombosis. Signed 07/18/2017 10:34 AM Shaquille Blevins MD Procedure Note Interface, Radiology Results In - 07/18/2017 10:35 AM T Vascular Ultrasound Laboratory Upper Extremity Venous Report [id number] [address] Pat.Name: DESTINEY TELLEZ Pat.ID: [id number] .Date: 07/18/2017 Refer.MD: KIARA BEAN MD Exam Time: 9:11:00 AM Study Type:UE Venous Age: 8 1945,72Y Sex: FEMALE Sonogrphr: Sharan Hodges, RDMS, RVT Pat. Stat.:Inpatient Room: [id number] Tape Vol: , CPT - 4: 93827 Echo Event ID:[id number] Order ID: [id number] Reason for Study:Bilateral upper extremity edema per ordering physician. History of Non-Hodgkin Lymphoma 2015 s/p METS lymph node and bone s/p chemo, right hydronephrosis due to METS. Race: C SUMMARY: DUPLEX SCAN OBSERVATIONS Right Left IJ Normal Normal Subclavian Pulsatile Pulsatile Axillary Normal Normal Brachial Normal Normal Basilic Normal Normal Cephalic Normal Normal RIGHT: There is normal compressibility and no evidence of echogenic material noted within the lumen of the visualized veins. Colorflow and Doppler signals are normal. LEFT: There is normal compressibility and no evidence of echogenic material noted within the lumen of the visualized veins. Colorflow and Doppler signals are normal. PRELIMINARY FINDINGS 1. No evidence of thrombosis noted in the visualized veins. 2. Focally elevated velocities in what appears to be the innominate veins, bilaterally. No evidence of echogenic material noted within the lumen. Pulsatility is noted in the aforementioned veins. PHYSICIAN INTERPRETATION 1. Venous examination of both upper extremities and neck demonstrates no evidence of venous thrombosis. Signed 07/18/2017 10:34 AM Shaquille Blevins MD after 03/25/2017 Insurance Payer Benefit Subscriber ID Type Phone Address Plan / Group MEDICARE MEDICARE xxxxxxxxxx Medicare [place], [place] PART A AND B [employer] [place] [employer] [place]
--- OUTSIDE RECORDS SUMMARY | 2018-03-26 07:24 | XMS REPORT ---
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 Allergies, Adverse Reactions, Alerts This patient has no known allergies or adverse reactions. Medications This patient has no known medications. Results Test Description Test Time Test Comments Text Results Atomic Results Result Comments CHEST 2 VIEWS [place] [address] Patient Name: COSMO TELLEZ MR #: [id number] : 1945 Age/Sex: 72/F Req #: [id number] Adm Physician: Ordered by: CHI CARSON MD Report #: [id number] Location: OR Room/Bed: Procedure: [id number] DX/CHEST 2 VIEWS Exam Date: 03/23/18 Exam Time: 1400 REPORT STATUS: Signed PROCEDURE: X-RAY CHEST, TWO VIEWS COMPARISON: [facility], DX, CHEST 2 VIEWS, 05/25/2015, 12:20. INDICATIONS: PORT O CATH REMOVAL PRE OP FINDINGS: Lines/tubes: MediPort catheter has been placed in the right chest wall with catheter tip in SVC. No pneumothorax. LUNGS: No consolidations or edema. PLEURA: No effusions or pneumothorax. Central eventration of right diaphragm is stable. HEART T MEDIASTINUM: The heart is within normal size- limits. BONES T SOFT TISSUES: No focal osseous lesions. Cholecystectomy clips are stable. CONCLUSION: No acute thoracic abnormality. Other findings as described above. Dictated by: Matthew Sosa M.D. on 03/23/2018 at 14:39 Electronically approved by : Matthew Sosa M.D. on 03/23/2018 at 14:39 Dictated By: MATTHEW SOSA MD [id number] COPY TO: CHI CARSON MD
--- NOTE | 2018-03-26 14:58 | Operative Report ---
DATE OF PROCEDURE: March 26, 2018 PREOPERATIVE DIAGNOSIS: Malfunctioning right subclavian venous access port. POSTOPERATIVE DIAGNOSIS: Malfunctioning right subclavian venous access port. OPERATION PERFORMED: Removal of right subclavian venous access port. ANESTHESIA: General. COMPLICATIONS: None. ESTIMATED BLOOD LOSS: Minimal. DESCRIPTION OF PROCEDURE: With the patient lying in bed in the supine position under good general anesthesia, the right chest was prepped with Betadine solution and draped in the usual manner. The area overlying the Port-A-Cath in the right anterior chest was then infiltrated with 0.25% Marcaine. An incision was made, was carried down through the subcutaneous tissue and through the capsule of the Port-A-Cath. The Port-A-Cath was then delivered into the wound, it was being held in place with one suture which was removed and the Port-A-Cath then came out in its entirety without any difficulty. Hemostasis was ascertained. The subcutaneous tissue and capsule were then closed with interrupted sutures of 3-0 and 4-0 Vicryl and the skin was closed with subcuticular 5-0 Vicryl. Benzoin and Steri-Strips were applied as dressing was placed. The sponge, lap and needle count was correct. Patient tolerated the procedure well and returned to the recovery room in stable condition. Job#: [id number] YODIT
== END | disposition home or self-care (01) ==
LOC: OR 07:22
PROVIDERS: ATTEND Surgery
DX: T82.518A Breakdown (mechanical) of other cardiac and vascular devices and implants, initial encounter (principal); I69.351 Hemiplegia and hemiparesis following cerebral infarction affecting right dominant side; I10 Essential (primary) hypertension; K44.9 Diaphragmatic hernia without obstruction or gangrene; K21.9 Gastro-esophageal reflux disease without esophagitis; Y83.8 Other surgical procedures as the cause of abnormal reaction of the patient, or of later complication, without mention of misadventure at the time of the procedure; Z88.5 Allergy status to narcotic agent; Z88.2 Allergy status to sulfonamides; Z01.810 Encounter for preprocedural cardiovascular examination; Z01.812 Encounter for preprocedural laboratory examination; Z01.818 Encounter for other preprocedural examination
CPT/HCPCS: 36415; 36590; 71046; 80048; 85025; 93005; J0690; J1100; J2001; J2250; J2405; J2765

== ENCOUNTER → 2018-11-01 | Outpatient (CLI) | payer MEDICARE, OTHER ==
[~2018-11-01] MED LIST changes: -BUPIVACAINE 0.25%/EPI 30ML SDV INJ ONE; -CEFAZOLIN SOD 1 GM VIAL ONE; -DEXAMETHASONE SOD PHOS INJ 4 MG/ML VIAL ONE; -FENTANYL CITRATE/PF 100MCG/2 ML INJ ONE; -LIDOCAINE HCL 2% LOCAL INJ 5 ML SDV VIAL INJ ONE; -METOCLOPRAMIDE HCL 10 MG/2ML VIAL ONE; -MIDAZOLAM HCL 2 MG/2 ML VIAL ONE; -ONDANSETRON HCL INJ 2 MG/ML VIAL ONE; -PROPOFOL IV EMULSION 10 MG/ML 20 ML VIAL ONE; -SEVOFLURANE INHAL SOLN 250 ML PEN BTL ONE
== END ==
LOC: MAMMO 08:36
PROVIDERS: ATTEND Family Medicine
DX: Z12.31 Encounter for screening mammogram for malignant neoplasm of breast (principal)
CPT/HCPCS: 77067

== ENCOUNTER 2019-08-27 13:55 | Inpatient (IN) | payer MEDICARE, OTHER ==
[~2019-08-27] VITALS: Ht 154.9 cm; Wt 61.4 kg
[2019-08-27] MEDS: SODIUM CHLORIDE 0.9% 1000ML 1,000 ML IV SCH (02:23)
[2019-08-27] MEDS ORDERED: SODIUM CHLORIDE 0.9% 1000ML 1,000 ML IV STA ×2 (14:58)
[2019-08-27] MEDS ORDERED: PANTOPRAZOLE 40 MG 10ML VIAL IV NR (14:58)
[2019-08-27] MEDS ORDERED: VANCOMYCIN 1GM/NS 250 ML 250 ML IV STA (15:00)
[2019-08-27] MEDS ORDERED: ACETAMINOPHEN 1000 MG/100 ML IV NR (15:15)
[2019-08-27] MEDS ORDERED: HYDROCORTISONE SOD SUCCINATE 100 MG VIAL IV NR (15:15)
[2019-08-27] MEDS ORDERED: CEFEPIME 2 GM/NS 0.9% 100 ML 100 ML IV ONE (15:15)
[2019-08-27] MEDS ORDERED: FAMOTIDINE 20 MG/2 ML VIAL IV NR (15:15)
[2019-08-27] MEDS ORDERED: ONDANSETRON HCL INJ 2MG/ML 2ML 2 MG/ML VIAL IV PRN (15:15)
[2019-08-27] MEDS ORDERED: ONDANSETRON HCL INJ 2MG/ML 2ML 2 MG/ML VIAL IV NR (15:15)
[2019-08-27 15:50] LABS: BASOPHILS % 0.4 % (0.0-1.0); HEMATOCRIT 44.2 % (34.2-44.1); HEMOGLOBIN 14.4 g/dL (12.0-16.0); LYMPHOCYTES # (AUTO) 0.6 (1.0-3.2); LYMPHOCYTES % 11.8 % (18.0-39.1); MEAN CORPUSCULAR HEMOGLOBIN 30.9 pg (28-32); MEAN CORPUSCULAR HGB CONC 32.6 g/dL (31-35); MEAN CORPUSCULAR VOLUME 94.8 fL (81-99); MONOCYTES # (AUTO) 0.4 (0.2-0.8); MONOCYTES % 7.8 % (4.4-11.3); NEUTROPHILS # (AUTO) 3.8 (2.1-6.9); NEUTROPHILS % 75.4 % (38.7-80.0); PLATELET COUNT 98 x10e3/uL (140-360); RED BLOOD COUNT 4.66 x10e6/uL (3.6-5.1); RED CELL DISTRIBUTION WIDTH 14.5 % (11.7-14.4)
[2019-08-27] MEDS: FAMOTIDINE 20 MG/2 ML VIAL IV SCH (15:53)
--- NOTE | 2019-08-27 15:54 | Diagnostic Imaging Report ---
EXAMINATION: CHEST SINGLE (PORTABLE) INDICATION: Nausea, vomiting, fever COMPARISON: None FINDINGS: LINES/TUBES:None LUNGS:The lungs are well-inflated. No focal consolidation or pulmonary edema. Nodular opacities at the right lung base likely represent pulmonary vessels seen en face. PLEURA:No pleural effusion or pneumothorax. MEDIASTINUM:The cardiomediastinal silhouette appears normal in size and shape. BONES/SOFT TISSUES:No acute osseous injury. ABDOMEN:No free air under the diaphragm. IMPRESSION: No focal pneumonia or pulmonary edema. Signed by: Didi Bajwa MD on 08/27/2019 3:51 PM
[2019-08-27 15:56] LABS: INR 0.83; PARTIAL THROMBOPLASTIN TIME 25.2 seconds (23.8-35.5); PROTHROMBIN TIME 11.9 seconds (11.9-14.5)
[2019-08-27 16:05] LABS: ALANINE AMINOTRANSFERASE 39 IU/L (0-55); ALBUMIN 3.6 g/dL (3.5-5.0); ALBUMIN/GLOBULIN RATIO 1.1 (0.8-2.0); ALKALINE PHOSPHATASE 118 IU/L (40-150); ANION GAP 15.3 mmol/L (8-16); BLOOD UREA NITROGEN 15 mg/dL (7-26); BUN/CREATININE RATIO 18 (6-25); CALCIUM 9.2 mg/dL (8.4-10.2); CARBON DIOXIDE 24 mmol/L (22-29); CHLORIDE 101 mmol/L (98-107); CREATINE KINASE 22 IU/L (29-168); CREATININE, SERUM 0.85 mg/dL (0.57-1.11); EST GLOMERULAR FILTRATION RATE > 60 ML/MIN (60-); GLUCOSE 128 mg/dL (74-118); LIPASE 11 U/L (8-78); MAGNESIUM 1.9 MG/DL (1.3-2.1); POTASSIUM 3.3 mmol/L (3.5-5.1); SODIUM 137 mmol/L (136-145)
[2019-08-27 16:19] LABS: B-TYPE NATRIURETIC PEPTIDE2 61.1 pg/mL (0-100)
[2019-08-27 16:24] LABS: THYROID STIMULATING HORMONE 1.725 uIU/mL (0.350-4.940)
[2019-08-27 17:05] LABS: EOSINOPHILS % (MANUAL) 1 % (0-7); LYMPHOCYTES % (MANUAL) 17 % (19-48); MONOCYTES % (MANUAL) 3 % (3.4-9.0); NEUTROPHILS % (MANUAL) 76 % (40-74); PLATELET ESTIMATE SLIGHTLY DECREASED; PLATELET MORPHOLOGY COMMENT NORMAL; RBC MORPHOLOGY COMMENT NORMAL
[2019-08-27 20:05] VITALS: BP 106/52
[2019-08-27 21:00] VITALS: BP 106/52
[2019-08-27 21:30] VITALS: BP 106/52
--- NOTE | 2019-08-27 21:30 | NUR ---
patient received from ER. Patient is AAOx3, resp even and unlabored. no acute distress noted at this time. tele in place. oriented to room. family at bed side. call light within reach. bed low/locked. continue to monitor closely
[2019-08-27 21:32] VITALS: BP 106/52
[2019-08-27 23:23] LABS: CREATINE KINASE 20 IU/L (29-168)
[2019-08-28] VITALS (9 sets, daily range): BP systolic 98–151; BP diastolic 52–84
[2019-08-28] MEDS: SODIUM CHLORIDE 0.9% 1000ML 1,000 ML IV SCH ×3 (00:19→22:23)
[2019-08-28] MEDS: ACETAMINOPHEN 325 MG TAB PO PRN ×2 (00:20→15:10)
[2019-08-28] MEDS ORDERED: LOVASTATIN20 MG PO (00:41)
--- NOTE | 2019-08-28 00:46 | History and Physical ---
HISTORY OF PRESENT ILLNESS: The patient is a 74-year-old female with history of immune deficiency, hypogammaglobinemia, who was in usual state of health until the patient started this morning with nausea and vomiting and sudden chills. The patient had no sick contacts. No exposure of bad food. The patient came into my office and sent to the ER, was admitted to the hospital for febrile illness. The patient is currently in the ER. IV fluids have been administered to the patient. PAST MEDICAL HISTORY: History of hypertension, hypothyroidism, and history of breast cancer. MEDICATIONS: She takes benazepril 10 mg, levothyroxine 50 mcg, and omeprazole 40 mg. ALLERGIES: SHE IS ALLERGIC TO SULFONAMIDES AND ALSO CODEINE. SOCIAL HISTORY: No EtOH. No IV drug abuse. Has not been a smoker either. FAMILY HISTORY: Noncontributory. The patient has additional history of multiple episodes of urinary tract infection. Has been seen by ID several times, who has been given Cipro antibiotics several times. REVIEW OF SYSTEMS: Negative for chest pain. No shortness of breath. Positive for nausea and vomiting. No diarrhea. No constipation. No rectal bleeding. No hematochezia. No hematemesis. No dysuria. Positive for chills. PHYSICAL EXAMINATION: GENERAL: The patient is alert and oriented x3. HEENT: Normocephalic and atraumatic. Pupils are reactive to light and accommodation. CVS: S1 and S2 normal. Regular rate and rhythm. ABDOMEN: Slightly tender in the suprapubic area and also in the left upper quadrant. EXTREMITIES: No clubbing, no cyanosis, no edema. LABORATORY VALUES: White count is 5000, hemoglobin 14.4, and hematocrit 44.2. Chemistry; sodium 137, potassium 3.3, BUN 15, and creatinine 0.85. Lactic acid was 1.5, glucose is 121. Troponins have been negative. Coags are normal. Chemistries; sodium of 133, potassium 3.3, BUN of 15, and creatinine 0.85, glucose of 128. AST was 55 and TSH is 1.725. Serology, no strep or no implants has been done. The patient has been subjected to blood culture and urine culture pending. Currently, the patient is on antibiotic. The patient has been started on 1 g of vancomycin and cefepime, which was given currently and no antibiotic at this time. ASSESSMENT AND PLAN: Ms. Destiney Haider with acute febrile illness and plan is to do a flu swab and also strep swab. We will continue to monitor the patient. Start the patient on cefepime at this time 1 g q.12 hours and follow up with urine cultures and blood cultures. Fluid resuscitation has been given. The patient is on 20 mg of famotidine b.i.d. for GI prophylaxis. SCDs will be applied for DVT prophylaxis. Further recommendation per clinical course. We will introduce ID into the pictures soon. Further recommendation per clinical course. MD ELOY Rashid/ZAKIA /[id number]
--- NOTE | 2019-08-28 05:39 | Diagnostic Imaging Report ---
EXAMINATION: CHEST SINGLE (PORTABLE) INDICATION: Fever. COMPARISON: Chest radiograph 08/27/2019. FINDINGS: TUBES and LINES: None. LUNGS: Lungs are well inflated. Mild patchy left basilar opacity, likely atelectasis. There is no evidence of lobar pneumonia or pulmonary edema. PLEURA: No pleural effusion or pneumothorax. HEART AND MEDIASTINUM: The cardiomediastinal silhouette is unremarkable. BONES AND SOFT TISSUES: No acute osseous abnormality. UPPER ABDOMEN: No free air under the diaphragm. IMPRESSION: No acute radiographic abnormality. Signed by: Dr. Jasbir Simons MD on 08/28/2019 5:36 AM
[2019-08-28 05:41] LABS: BASOPHILS % 0.7 % (0.0-1.0); HEMATOCRIT 38.3 % (34.2-44.1); HEMOGLOBIN 12.4 g/dL (12.0-16.0); LYMPHOCYTES # (AUTO) 0.6 (1.0-3.2); LYMPHOCYTES % 14.8 % (18.0-39.1); MEAN CORPUSCULAR HEMOGLOBIN 30.9 pg (28-32); MEAN CORPUSCULAR HGB CONC 32.4 g/dL (31-35); MEAN CORPUSCULAR VOLUME 95.5 fL (81-99); MONOCYTES # (AUTO) 0.2 (0.2-0.8); MONOCYTES % 5.3 % (4.4-11.3); NEUTROPHILS # (AUTO) 3.1 (2.1-6.9); NEUTROPHILS % 70.4 % (38.7-80.0); PLATELET COUNT 75 x10e3/uL (140-360); RED BLOOD COUNT 4.01 x10e6/uL (3.6-5.1); RED CELL DISTRIBUTION WIDTH 14.6 % (11.7-14.4)
[2019-08-28 05:42] LABS: BILIRUBIN,URINE NEGATIVE (NEGATIVE); CLARITY,URINE CLEAR (CLEAR); COLOR,URINE YELLOW (YELLOW); KETONES,URINE NEGATIVE (NEGATIVE); LEUKOCYTE ESTERASE ,URINE SMALL (NEGATIVE); NITRITE,URINE NEGATIVE (NEGATIVE); PROTEIN,URINE DIPSTICK NEGATIVE (NEGATIVE); URINE UROBILINOGEN 0.2 mg/dL (0.2 - 1)
[2019-08-28 05:53] LABS: BACTERIA,URINE RARE /HPF; EPITHELIAL CELLS,URINE FEW /LPF
[2019-08-28 06:45] LABS: PLATELET ESTIMATE MARKEDLY DECREASED
[2019-08-28 06:46] LABS: PLATELET MORPHOLOGY COMMENT FEW LARGE; RBC MORPHOLOGY COMMENT NORMAL
[2019-08-28 06:53] LABS: ALANINE AMINOTRANSFERASE 30 IU/L (0-55); ALBUMIN 2.4 g/dL (3.5-5.0); ALBUMIN/GLOBULIN RATIO 0.9 (0.8-2.0); ALKALINE PHOSPHATASE 91 IU/L (40-150); ANION GAP 11.2 mmol/L (8-16); BLOOD UREA NITROGEN 10 mg/dL (7-26); BUN/CREATININE RATIO 15 (6-25); CALCIUM 7.8 mg/dL (8.4-10.2); CARBON DIOXIDE 21 mmol/L (22-29); CHLORIDE 109 mmol/L (98-107); CREATININE, SERUM 0.65 mg/dL (0.57-1.11); EST GLOMERULAR FILTRATION RATE > 60 ML/MIN (60-); GLUCOSE 88 mg/dL (74-118); MAGNESIUM 1.8 MG/DL (1.3-2.1); PHOSPHORUS 2.6 MG/DL (2.3-4.7); POTASSIUM 3.2 mmol/L (3.5-5.1); SODIUM 138 mmol/L (136-145)
--- NOTE | 2019-08-28 07:00 | NUR ---
RECEIVED PATIENT RESTING IN BED NO S/S OF DISTRESS. BED LOW, WHEELS LOCKED, SIDE RAILS X2. CALL LIGHT IN REACH WILL CONTINUE TO MONITOR PATIENT.
[2019-08-28 07:09] LABS: CREATINE KINASE 34 IU/L (29-168)
[2019-08-28] MEDS ORDERED: DIATRIZOATE MEGL/DIATRIZOA SOD 30 ML BTL PO ONE (07:26)
--- NOTE | 2019-08-28 09:30 | NUR ---
PATIENT A/O X3, EVEN RESPIRATIONS ON RA. LUNG SOUNDS CLEAR TO AUSCULTATION. PATIENT ADVANCED TO GI SOFT DIET THIS AM. TOLERATING WELL. TELEMETRY #33 SR. RIGHT FA 20 GAUGE IV WITH NS @ 70 CC/HR. BRUISING TO BUE. NO PAIN AT THIS TIME. CALL LIGHT IN REACH WILL CONTINUE TO MONITOR PATIENT.
--- NOTE | 2019-08-28 09:36 | Diagnostic Imaging Report ---
EXAM: CT Abdomen and Pelvis WITH intravenous contrast INDICATION: Fever, abdominal pain, diverticulitis COMPARISON: None. TECHNIQUE: Abdomen and pelvis were scanned utilizing a multidetector helical scanner from the lung base to the pubic symphysis after administration of IV contrast. Coronal and sagittal reformations were obtained. Routine protocol was performed. Scan was performed during portal venous phase. IV CONTRAST: 100mL of Isovue 370 ORAL CONTRAST: Gastrografin RADIATION DOSE: Total DLP: 281.3 mGy*cm Dose modulation, iterative reconstruction, and/or weight based adjustment of the mA/kV was utilized to reduce the radiation dose to as low as reasonably achievable. FINDINGS: LOWER THORAX: Normal. HEPATOBILIARY: Diffuse hepatic steatosis. Hepatomegaly to 18.5 cm. No focal liver lesion. Status post cholecystectomy. SPLEEN: Hypodense lesions in the spleen measure up to 12 mm, possibly related to remote trauma or infection. PANCREAS: No focal masses or ductal dilatation. ADRENALS: No adrenal nodules. KIDNEYS/URETERS: No hydronephrosis, stones, or solid mass lesions. PELVIC ORGANS/BLADDER: Unremarkable. PERITONEUM / RETROPERITONEUM: No free air or fluid. LYMPH NODES: No lymphadenopathy. VESSELS: Scattered atherosclerotic calcifications of the nonaneurysmal abdominal aorta and major branches. GI TRACT: Colonic diverticulosis. No CT evidence of diverticulitis. No abnormal bowel thickening. No bowel obstruction. BONES AND SOFT TISSUES: No acute osseous injury. No suspicious lytic or blastic lesions. IMPRESSION: Diverticulosis without CT evidence of diverticulitis. Hepatic steatosis and mild hepatomegaly to 18.5 cm. Signed by: Didi Bajwa MD on 08/28/2019 9:33 AM
[2019-08-28] MEDS: FAMOTIDINE 20 MG/2 ML VIAL IV SCH ×2 (09:40→16:52)
[2019-08-28] MEDS: VANCOMYCIN 1GM/NS 250 ML 250 ML IV SCH ×2 (09:40→21:07)
[2019-08-28] MEDS: BENAZEPRIL HCL 10 MG TAB PO SCH (09:40)
[2019-08-28] MEDS: LEVOTHYROXINE SODIUM 25 MCG TABLET PO SCH (09:40)
--- NOTE | 2019-08-28 10:10 | Progress Note ---
DATE: SUBJECTIVE: The patient comes in with febrile illness. Continues to have some chills and some fever. The patient is otherwise no nausea. OBJECTIVE: VITAL SIGNS: Her last temperature is 100.5, pulse of 87, respirations of 18, blood pressure is 151/68, pulse oximetry of 96%. HEENT: Normocephalic and atraumatic. Pupils are reactive to light and accommodation. CVS: S1 and S2 normal. Regular rate and rhythm. ABDOMEN: Tender in the left lower quadrant. EXTREMITIES: No clubbing, no cyanosis, no edema. MICROBIOLOGY: Urine cultures pending. Throat cultures pending and blood cultures are pending. LABORATORY VALUES: The patient's white count is 4.33, hemoglobin of 12.4, hematocrit 38.3. Neutrophil count was slightly elevated at 76, which is minimal. Coags are normal. Urine shows wbc's and rbc's. Serology negative for Influenza, negative for group A strep. ASSESSMENT: 1. Febrile illness with the patient with known recurrent urinary tract infections. 2. Hypogammaglobulinemia. 3. History of hypertension. 4. History of cancer. PLAN: Plan at this point of time would be to start vancomycin 1 g q. 12 hours. Await cultures at this time. We will keep hydrating the patient at 75 mL an hour. The patient to be started on soft mechanical diet. Medications will be reconciled. Further recommendation per clinical course. The patient is on DVT prophylaxis and also on GI prophylaxis. MD ELOY Rashid/MODL /[id number]
[2019-08-28 15:05] LABS: CREATINE KINASE 45 IU/L (29-168)
[2019-08-28] MEDS ORDERED: SODIUM CHLORIDE 0.9% 50ML 50 ML ONE (15:31)
[2019-08-28] MEDS ORDERED: IOPAMIDOL 370 MG/ML 200 ML INFUS..BTL INJ ONE (15:31)
[2019-08-28] MEDS: ENOXAPARIN SOD INJ 40 MG/0.4 ML SYR SC SCH (16:52)
--- NOTE | 2019-08-28 19:08 | NUR ---
PT IS RESTING IN BED WITH FAMILY AT BEDSIDE. RESPIRATION IS EVEN AND UNLABORED, NO DISTRESS NOTED. BED IN THE LOWEST POSITION, LOCKED, AND CALL LIGHT WITHIN REACH. WILL CONTINUE TO MONITOR.
[2019-08-28] MEDS: SIMVASTATIN 20 MG TAB PO SCH (21:07)
[2019-08-29] VITALS (7 sets, daily range): BP systolic 88–131; BP diastolic 58–77
[2019-08-29 05:26] LABS: BASOPHILS % 0.6 % (0.0-1.0); EOSINOPHILS % 0.6 % (0.0-6.0); HEMATOCRIT 35.3 % (34.2-44.1); HEMOGLOBIN 11.6 g/dL (12.0-16.0); LYMPHOCYTES # (AUTO) 0.6 (1.0-3.2); LYMPHOCYTES % 20.6 % (18.0-39.1); MEAN CORPUSCULAR HEMOGLOBIN 30.9 pg (28-32); MEAN CORPUSCULAR HGB CONC 32.9 g/dL (31-35); MEAN CORPUSCULAR VOLUME 94.1 fL (81-99); MONOCYTES # (AUTO) 0.2 (0.2-0.8); MONOCYTES % 7.7 % (4.4-11.3); PLATELET COUNT 66 x10e3/uL (140-360); RED BLOOD COUNT 3.75 x10e6/uL (3.6-5.1); RED CELL DISTRIBUTION WIDTH 14.2 % (11.7-14.4)
[2019-08-29] MEDS: LEVOTHYROXINE SODIUM 25 MCG TABLET PO SCH (05:47)
[2019-08-29 05:50] LABS: ALANINE AMINOTRANSFERASE 27 IU/L (0-55); ALBUMIN 2.5 g/dL (3.5-5.0); ALBUMIN/GLOBULIN RATIO 0.9 (0.8-2.0); ALKALINE PHOSPHATASE 96 IU/L (40-150); ANION GAP 13.1 mmol/L (8-16); BLOOD UREA NITROGEN 10 mg/dL (7-26); BUN/CREATININE RATIO 15 (6-25); CALCIUM 8.2 mg/dL (8.4-10.2); CARBON DIOXIDE 20 mmol/L (22-29); CHLORIDE 109 mmol/L (98-107); CREATININE, SERUM 0.65 mg/dL (0.57-1.11); EST GLOMERULAR FILTRATION RATE > 60 ML/MIN (60-); GLUCOSE 65 mg/dL (74-118); POTASSIUM 3.1 mmol/L (3.5-5.1); SODIUM 139 mmol/L (136-145)
--- NOTE | 2019-08-29 07:10 | NUR ---
pt asleep resp even and unlabored at this time, pt able to make needs known, no c/c pain when asked, call light in reach, will cont to monitor.
[2019-08-29 08:26] LABS: PLATELET ESTIMATE MARKEDLY DECREASED; RBC MORPHOLOGY COMMENT NORMAL
[2019-08-29] MEDS: FAMOTIDINE 20 MG/2 ML VIAL IV SCH ×2 (08:36→17:00)
[2019-08-29] MEDS: SODIUM CHLORIDE 0.9% 1000ML 1,000 ML IV SCH (08:40)
[2019-08-29] MEDS: BENAZEPRIL HCL 10 MG TAB PO SCH (09:29)
[2019-08-29] MEDS ORDERED: POTASSIUM CHLORIDE 20 MEQ TAB CR PO ONE (10:40)
[2019-08-29] MEDS: ENOXAPARIN SOD INJ 40 MG/0.4 ML SYR SC SCH (17:00)
--- NOTE | 2019-08-29 19:21 | NUR ---
PT IS RESTING IN BED. RESPIRATION IS EVEN AND UNLABORED, NO DISTRESS NOTED. BED IN THE LOWEST POSITION, LOCKED, AND CALL LIGHT WITHIN REACH. WILL CONTINUE TO MONITOR.
--- NOTE | 2019-08-29 19:30 | NUR ---
report given to oncoming nurse, pt stable.
--- NOTE | 2019-08-29 20:43 | Progress Note ---
DATE: SUBJECTIVE: The patient came in with sepsis. The patient is currently stable. Chills and rigors have gone. Fevers dissipated. No complaints. The patient has been walking around in the room. OBJECTIVE: VITAL SIGNS: Temperature is 98.3, pulse of 75, T-max 98.3, respirations of 18, blood pressure is 107/69, and pulse oximetry of 97%. HEENT: Normocephalic, atraumatic. Pupils are reactive to light and accommodation. CVS: S1 and S2 normal. Regular rate and rhythm. ABDOMEN: Nontender, nondistended. EXTREMITIES: No clubbing. No cyanosis and/or no edema. LABORATORY VALUES: White count is 3.11, hemoglobin of 11.6, hematocrit of 35.3, no left shift present. Chemistries: Sodium of 139, potassium 3.1, BUN of 10, creatinine 0.65. Toxicology, vancomycin trough is 15. ASSESSMENT: 1. A 74-year-old female with possible febrile illness and possible sepsis. 2. Hypogammaglobulinemia. 3. History of hypertension. 4. History of cancer. PLAN: Continue on vancomycin. We held one dose today. We will start 1 g in 24 hours. Plan will be possible discharge tomorrow on Levaquin 500 mg once a day for 7 days. We will advance her diet. Further recommendation per clinical course. She has been followed up as an outpatient after discharge tomorrow and strict ER warnings given. MD ELOY Rashid/MODL /[id number]
[2019-08-29] MEDS: VANCOMYCIN 1GM/NS 250 ML 250 ML IV SCH (21:38)
[2019-08-29] MEDS: SIMVASTATIN 20 MG TAB PO SCH (21:39)
[2019-08-30] VITALS (8 sets, daily range): BP systolic 88–152; BP diastolic 48–93
[2019-08-30] MEDS: SODIUM CHLORIDE 0.9% 1000ML 1,000 ML IV SCH ×2 (01:57→16:15)
[2019-08-30] MEDS: LEVOTHYROXINE SODIUM 25 MCG TABLET PO SCH (06:48)
[2019-08-30] MEDS: FAMOTIDINE 20 MG/2 ML VIAL IV SCH (08:26)
[2019-08-30] MEDS: BENAZEPRIL HCL 10 MG TAB PO SCH (08:27)
--- NOTE | 2019-08-30 09:50 | Progress Note ---
DATE: SUBJECTIVE: This is a 74-year-old female who came in with chills, rigors, and febrile illness. The patient was given four doses of vancomycin total. The patient's cultures of beyer cultures have been negative. Urine did show gram-negative bacilli. The patient is showing Enterococcus 10,000 to 50,000 in there and also showing gram-negative bacilli. Currently, the patient is on vancomycin. No chills, no rigors. OBJECTIVE: CVS: S1 and S2 normal. Regular rate and rhythm. ABDOMEN: Nontender and nondistended. EXTREMITIES: No clubbing, no cyanosis, no edema. ASSESSMENT: 1. Sepsis. 2. Urinary tract infection with new finding of gram-negative bacillus. 3. Hypertension. 4. History of transfer. PLAN: Add Merrem to the regimen of vancomycin. We will continue to monitor the patient and await for susceptibilities. MD ELOY Rashid/MODL /[id number]
[2019-08-30] MEDS: MEROPENEM 1GM 100 ML IV SCH ×2 (13:01→21:32)
--- NOTE | 2019-08-30 14:33 | NUR ---
IMM letter delivered and explained to pt. She verbalized understanding. Signed copy placed in chart. Copy to pt.
[2019-08-30] MEDS: FAMOTIDINE 20 MG TAB PO SCH (15:37)
[2019-08-30] MEDS: ENOXAPARIN SOD INJ 40 MG/0.4 ML SYR SC SCH (15:38)
--- NOTE | 2019-08-30 19:20 | NUR ---
Report given to oncoming nurse of patient's status. Resting in bed. No s/s of acute distress noted. Family at bedside. Side rails upx2, call light within reach.
--- NOTE | 2019-08-30 19:29 | NUR ---
Received change of shift report from AM nurse. Walking rounds completed.
[2019-08-30] MEDS: SIMVASTATIN 20 MG TAB PO SCH (21:00)
[2019-08-30] MEDS: VANCOMYCIN 1GM/NS 250 ML 250 ML IV SCH (21:00)
[2019-08-31] VITALS (7 sets, daily range): BP systolic 137–160; BP diastolic 67–77
[2019-08-31] MEDS: MEROPENEM 1GM 100 ML IV SCH ×3 (06:00→22:00)
[2019-08-31] MEDS: LEVOTHYROXINE SODIUM 25 MCG TABLET PO SCH (06:00)
--- NOTE | 2019-08-31 06:00 | NUR ---
Patient resting quitly at this time. in to see patient.
[2019-08-31] MEDS: SODIUM CHLORIDE 0.9% 1000ML 1,000 ML IV SCH ×2 (06:33→20:51)
[2019-08-31 07:04] LABS: EOSINOPHILS % 0.5 % (0.0-6.0); HEMATOCRIT 35.5 % (34.2-44.1); HEMOGLOBIN 11.7 g/dL (12.0-16.0); LYMPHOCYTES # (AUTO) 0.7 (1.0-3.2); LYMPHOCYTES % 36.2 % (18.0-39.1); MEAN CORPUSCULAR HEMOGLOBIN 30.6 pg (28-32); MEAN CORPUSCULAR VOLUME 92.9 fL (81-99); MONOCYTES # (AUTO) 0.2 (0.2-0.8); MONOCYTES % 10.1 % (4.4-11.3); NEUTROPHILS # (AUTO) 0.9 (2.1-6.9); NEUTROPHILS % 46.7 % (38.7-80.0); PLATELET COUNT 71 x10e3/uL (140-360); RED BLOOD COUNT 3.82 x10e6/uL (3.6-5.1)
[2019-08-31 07:23] LABS: ALANINE AMINOTRANSFERASE 21 IU/L (0-55); ALBUMIN 2.4 g/dL (3.5-5.0); ALBUMIN/GLOBULIN RATIO 0.8 (0.8-2.0); ALKALINE PHOSPHATASE 95 IU/L (40-150); BLOOD UREA NITROGEN 8 mg/dL (7-26); BUN/CREATININE RATIO 13 (6-25); CALCIUM 8.4 mg/dL (8.4-10.2); CARBON DIOXIDE 26 mmol/L (22-29); CHLORIDE 112 mmol/L (98-107); CREATININE, SERUM 0.62 mg/dL (0.57-1.11); EST GLOMERULAR FILTRATION RATE > 60 ML/MIN (60-); GLUCOSE 92 mg/dL (74-118); MAGNESIUM 1.8 MG/DL (1.3-2.1); SODIUM 146 mmol/L (136-145)
[2019-08-31 07:59] LABS: PLATELET ESTIMATE MARKEDLY DECREASED; PLATELET MORPHOLOGY COMMENT FEW LARGE
[2019-08-31] MEDS: FAMOTIDINE 20 MG TAB PO SCH ×2 (09:49→16:50)
[2019-08-31] MEDS: BENAZEPRIL HCL 10 MG TAB PO SCH (09:49)
[2019-08-31] MEDS ORDERED: POTASSIUM CHLORIDE 20 MEQ TAB CR PO ONE (12:30)
[2019-08-31] MEDS: ENOXAPARIN SOD INJ 40 MG/0.4 ML SYR SC SCH (16:52)
--- NOTE | 2019-08-31 19:28 | NUR ---
Received change of shift report from AM nurse. Walking rounds completed.
[2019-08-31] MEDS: SIMVASTATIN 20 MG TAB PO SCH (21:00)
[2019-08-31] MEDS: VANCOMYCIN 1GM/NS 250 ML 250 ML IV SCH (21:00)
[2019-09-01] VITALS (7 sets, daily range): BP systolic 132–163; BP diastolic 63–91
[2019-09-01] MEDS: MEROPENEM 1GM 100 ML IV SCH ×3 (05:34→21:39)
[2019-09-01] MEDS: LEVOTHYROXINE SODIUM 25 MCG TABLET PO SCH (05:34)
[2019-09-01 06:38] LABS: HEMATOCRIT 35.8 % (34.2-44.1); HEMOGLOBIN 11.6 g/dL (12.0-16.0); LYMPHOCYTES # (AUTO) 0.8 (1.0-3.2); LYMPHOCYTES % 38.3 % (18.0-39.1); MEAN CORPUSCULAR HEMOGLOBIN 30.2 pg (28-32); MEAN CORPUSCULAR HGB CONC 32.4 g/dL (31-35); MEAN CORPUSCULAR VOLUME 93.2 fL (81-99); MONOCYTES # (AUTO) 0.2 (0.2-0.8); MONOCYTES % 10.7 % (4.4-11.3); NEUTROPHILS % 47.5 % (38.7-80.0); PLATELET COUNT 71 x10e3/uL (140-360); RED BLOOD COUNT 3.84 x10e6/uL (3.6-5.1); RED CELL DISTRIBUTION WIDTH 13.7 % (11.7-14.4)
[2019-09-01 06:56] LABS: ALANINE AMINOTRANSFERASE 22 IU/L (0-55); ALBUMIN 2.4 g/dL (3.5-5.0); ALBUMIN/GLOBULIN RATIO 0.8 (0.8-2.0); ALKALINE PHOSPHATASE 100 IU/L (40-150); ANION GAP 10.1 mmol/L (8-16); BLOOD UREA NITROGEN 10 mg/dL (7-26); BUN/CREATININE RATIO 18 (6-25); CALCIUM 8.3 mg/dL (8.4-10.2); CARBON DIOXIDE 26 mmol/L (22-29); CHLORIDE 113 mmol/L (98-107); CREATININE, SERUM 0.57 mg/dL (0.57-1.11); EST GLOMERULAR FILTRATION RATE > 60 ML/MIN (60-); GLUCOSE 93 mg/dL (74-118); POTASSIUM 3.1 mmol/L (3.5-5.1); SODIUM 146 mmol/L (136-145)
[2019-09-01] MEDS: BENAZEPRIL HCL 10 MG TAB PO SCH (08:58)
[2019-09-01] MEDS: FAMOTIDINE 20 MG TAB PO SCH ×2 (08:58→17:03)
[2019-09-01] MEDS: SODIUM CHLORIDE 0.9% 1000ML 1,000 ML IV SCH (12:22)
--- NOTE | 2019-09-01 15:50 | NUR ---
Visit made by the Spiritual Care Department Pastoral Visitor, Foster Webber. PV provided pastoral presence, hospitality, communion, prayer, and supportive listening. Pastoral Visitor informed pt/family of the scope of [employer] Services and availability. RALF COSTA Customer Care Voice Consultant Spiritual Care Department O: [phone] Pager: [phone] ([phone] number calling from)
[2019-09-01] MEDS: ENOXAPARIN SOD INJ 40 MG/0.4 ML SYR SC SCH (17:03)
--- NOTE | 2019-09-01 19:15 | NUR ---
Received change of shift report from AM nurse. Walking rounds completed.
[2019-09-01] MEDS: VANCOMYCIN 1GM/NS 250 ML 250 ML IV SCH (21:00)
[2019-09-01] MEDS: SIMVASTATIN 20 MG TAB PO SCH (21:00)
--- NOTE | 2019-09-01 21:28 | NUR ---
BLOOD DRAWN FOR VANCO TROUGH. Sent to lab.
[2019-09-02] VITALS (8 sets, daily range): BP systolic 125–157; BP diastolic 60–80
[2019-09-02] MEDS: LEVOTHYROXINE SODIUM 25 MCG TABLET PO SCH (06:00)
[2019-09-02] MEDS: MEROPENEM 1GM 100 ML IV SCH ×3 (06:00→22:00)
--- NOTE | 2019-09-02 06:00 | NUR ---
Patient resting quitly at this time.
[2019-09-02] MEDS ORDERED: POTASSIUM CHLORIDE 20 MEQ TAB CR PO ONE (07:15)
[2019-09-02] MEDS: ACETAMINOPHEN 325 MG TAB PO PRN (07:50)
[2019-09-02] MEDS: DEXTROSE 5%/0.9% SOD CHL 1,000 ML IV SCH ×2 (07:50→22:29)
[2019-09-02] MEDS: BENAZEPRIL HCL 10 MG TAB PO SCH (08:50)
[2019-09-02] MEDS: FAMOTIDINE 20 MG TAB PO SCH ×2 (08:50→16:58)
--- NOTE | 2019-09-02 09:57 | Progress Note ---
DATE: SUBJECTIVE: The patient came in with sepsis. The patient is currently feeling better. Currently, on two antibiotic, vancomycin and Merrem. The patient has grown two separate organisms, Pseudomonas and Enterococcus, sensitive to both Merrem and vancomycin. OBJECTIVE: VITAL SIGNS: Temperature is 96.3, pulse of 61, respirations of 19, blood pressure 154/65, and pulse oximetry of 99%. HEENT: Normocephalic and atraumatic. Pupils are reactive to light and accommodation. CVS: S1 and S2 normal. Regular rate and rhythm. ABDOMEN: Nontender, nondistended. EXTREMITIES: No clubbing, no cyanosis, no edema. MEDICATIONS: The patient is on Merrem, levothyroxine, vancomycin, and simvastatin. She is also on anticoagulant daily, benazepril 5 mg daily, and also from as needed. MICROBIOLOGY: As noted above, Pseudomonas, Enterococcus. ASSESSMENT: 1. Urinary tract infection. 2. Sepsis. 3. Leukopenia. 4. Hypertension. PLAN: Continue with vancomycin and Merrem. Plan is also to consult Dr. Smith for neutropenia. We will also discuss with the family. Family thinks transfer to [facility] might be more appropriate because doctors are there, especially immunology. Further recommendation per clinical course. For right now, we will continue the current antibiotics. The patient also will have her diet advanced and also IV fluids cut down. MD ELOY Rashid/BEATAL /[id number]
[2019-09-02] MEDS ORDERED: FILGRASTIM 480 MCG INJ SQ SCH (10:00)
[2019-09-02] MEDS: ENOXAPARIN SOD INJ 40 MG/0.4 ML SYR SC SCH (16:58)
--- NOTE | 2019-09-02 17:34 | NUR ---
RD Recommendation(s) for Physician: -Ensure 1x/day -Recommend regular diet when medically appropriate Plan of Care: RD following, monitoring for tolerance and adequacy Nutrition reason for involvement: Length of stay RD Assessment: (09/02/19) Pt was admitted with fever, hypogammaglobulinemia, vomiting, and weakness. Pt stated her appetite has been down and eating < 50% of meals for > 5 days. However, per documentation, pt has been consuming 50-100% of meals during admission except 25% of breakfast on 08/31 and 08/28. Pt declared she usually weighs 130 lbs. Pt currently has a wt of 135 lbs in chart. No N/V/D/C reported. Principal Problems/Diagnoses: fever, hypogammaglobulinemia, vomiting, and weakness PMH: immune deficiency hypogammaglobulinemia, HTN, hypothyroid, and breast cancer I/O: 4081/- GI: last recorded BM 09/01 Skin: No pressure ulcer or wounds Labs: (09/02/19) Na 146, K 3.1, Ca 8.3 Meds: (09/02/19) meropene, famotidine, levothyroxine, vancomycin, simvastatin, lovenox, zofran Ht: 61 inches Wt: 135 lbs BMI: 25 kg/m2 IBW: 105 lbs Malnutrition Evaluation (09/02/19) The patient does not meet criteria for a specified degree of malnutrition at this time. Will re-evaluate at follow-up as appropriate. Energy intake: <50% of estimated energy requirements for >5 days per pt report Weight loss: No weight loss reported Fat loss: no loss identified Muscle loss: no loss identified Supporting Evidence: Fluid accumulation: unable to evaluate Functional Status: unable to evaluate, Nutrition Prescription (Diet Order): GI Soft diet Estimated Nutritional Needs: 1105- 1227 calories/day (18-20 kcal/kg CBW) 61- 92 g protein/day (1-1.5 g pro/kg CBW) Diet Adequacy: Not meeting calorie needs per pt statement, Not meeting protein needs per pt statement Tolerance: Tolerating PO Diet Education Needs Assessment: RD is available for diet education as needed Nutrition Care Level: Low Nutrition Diagnosis: Inadequate energy intake related to decreased ability to consume sufficient energy secondary to decreased appetite as evidenced by pt eating < 50% of meals per pt report. Goal: Patient will meet 75-100% of estimated needs by follow up Progress: N/A Interventions: Commercial beverage, Recommended Modifications Monitoring/Evaluation: Total energy intake, Total protein intake, Liquid supplement, Weight change Signed: Brenda Aguilar RD, LD
--- NOTE | 2019-09-02 19:30 | NUR ---
Patient received lying in bed. AAO x 3. Family at bedside. Patient had no complaints of pain. Respirations even and non-labored. Fall precautions implemented. Patient instructed to call for assistance when needed. Call light within reach.
[2019-09-02] MEDS: VANCOMYCIN 1GM/NS 250 ML 250 ML IV SCH (21:33)
[2019-09-02] MEDS: SIMVASTATIN 20 MG TAB PO SCH (21:33)
[2019-09-03] VITALS: BP 124/82
[2019-09-03 04:00] VITALS: BP 104/54
[2019-09-03 05:23] LABS: BASOPHILS # (AUTO) 0.1 (0.0-0.1); BASOPHILS % 0.9 % (0.0-1.0); EOSINOPHILS % 0.4 % (0.0-6.0); LYMPHOCYTES # (AUTO) 0.9 (1.0-3.2); MEAN CORPUSCULAR HEMOGLOBIN 30.6 pg (28-32); MEAN CORPUSCULAR HGB CONC 32.4 g/dL (31-35); MEAN CORPUSCULAR VOLUME 94.4 fL (81-99); MONOCYTES # (AUTO) 0.3 (0.2-0.8); MONOCYTES % 5.1 % (4.4-11.3); NEUTROPHILS # (AUTO) 3.7 (2.1-6.9); NEUTROPHILS % 65.2 % (38.7-80.0); PLATELET COUNT 74 x10e3/uL (140-360)
[2019-09-03 05:39] LABS: BLOOD UREA NITROGEN 8 mg/dL (7-26); BUN/CREATININE RATIO 13 (6-25); CALCIUM 8.3 mg/dL (8.4-10.2); CARBON DIOXIDE 25 mmol/L (22-29); CHLORIDE 111 mmol/L (98-107); CREATININE, SERUM 0.62 mg/dL (0.57-1.11); EST GLOMERULAR FILTRATION RATE > 60 ML/MIN (60-); GLUCOSE 136 mg/dL (74-118); SODIUM 144 mmol/L (136-145)
[2019-09-03] MEDS: MEROPENEM 1GM 100 ML IV SCH ×2 (05:39→14:00)
[2019-09-03] MEDS: LEVOTHYROXINE SODIUM 25 MCG TABLET PO SCH (05:39)
[2019-09-03 07:01] LABS: PLATELET ESTIMATE MARKEDLY DECREASED
[2019-09-03 07:02] LABS: PLATELET MORPHOLOGY COMMENT FEW LARGE; RBC MORPHOLOGY COMMENT NORMAL
[2019-09-03] MEDS ORDERED: POTASSIUM CHLORIDE 20 MEQ TAB CR PO SCH (07:45)
[2019-09-03 08:00] VITALS: BP 134/59
[2019-09-03 08:20] VITALS: BP 134/59
[2019-09-03] MEDS: BENAZEPRIL HCL 10 MG TAB PO SCH (08:20)
[2019-09-03] MEDS: FAMOTIDINE 20 MG TAB PO SCH ×2 (08:20→16:43)
--- NOTE | 2019-09-03 10:21 | Progress Note ---
DATE: SUBJECTIVE: The patient is a 74-year-old female, who came in with urinary tract infection, sepsis. The patient's microbiology grew out Pseudomonas and Enterococcus. The patient is currently on Merrem, and also on vancomycin q.12 hours. Currently, feeling better and was given Neupogen yesterday for neutropenia. The patient has been seen by Dr. Smith too. OBJECTIVE: VITAL SIGNS: Temperature is 97.7, pulse is 72, respirations are 17, and blood pressure is 105/54. HEENT: Normocephalic, atraumatic. Pupils are reactive to light and accommodation. CVS: S1, S2, normal. Regular rate and rhythm. ABDOMEN: Nontender, nondistended. EXTREMITIES: No clubbing, no cyanosis, no edema. LABORATORY VALUE: White count up to 5.66 with Neupogen, hemoglobin is 11 and hematocrit of 34.0. ASSESSMENT: 1. Neutropenia. 2. Urinary tract infection. 3. Hyperglobulinemia. 4. Sepsis. PLAN: PICC line with home health and with IV antibiotics at home. Dr. Smith will take care of the neutropenia. Further recommendation per clinical course. The patient can be discharged home on PICC line and IV antibiotics if case management is okay today. MD ELOY Rashid/BEATAL /[id number]
[2019-09-03 12:00] VITALS: BP 173/78
--- NOTE | 2019-09-03 13:00 | NUR ---
Spoke to pt and her granddaughter at bedside regarding home IV abx and home health. Pt is agreeable and states she has never had IV abx at home before. States she was agreeable with CM using any company that will take her insurance. Pt also stated that she is fine with infusion company setting up her home health. Choice letter signed for Eliud. Signed copy placed in chart. Copy to pt. Referral was faxed to [facility] at [phone]. Susie Schroeder, with [facility] was notified of referral and possible discharge for today, once everything is set up. IMM letter delivered and explained to pt. She verbalized understanding. Signed copy placed in chart. Copy to pt.
--- NOTE | 2019-09-03 13:18 | Diagnostic Imaging Report ---
EXAMINATION: CHEST XRAY LINE PLACEMENT INDICATION: Line placement COMPARISON: Chest radiograph of 08/28/2019 FINDINGS: LINES/TUBES:Interval placement of right PICC line terminating in the superior vena cava. EKG leads overlie the chest. LUNGS:The lungs are well-inflated. No focal consolidation or pulmonary edema. PLEURA:No pleural effusion or pneumothorax. MEDIASTINUM:The cardiomediastinal silhouette appears normal in size and shape. BONES/SOFT TISSUES:No acute osseous injury. ABDOMEN:No free air under the diaphragm. Status post cholecystectomy. IMPRESSION: Right PICC line terminates in the superior vena cava. No focal pneumonia or pulmonary edema. Signed by: Didi Bajwa MD on 09/03/2019 1:15 PM
--- NOTE | 2019-09-03 13:22 | NUR ---
PICC tip is in the SVC per radiology report by Dr Bajwa. PICC is OK to use
--- NOTE | 2019-09-03 15:48 | NUR ---
Per Susie Schroeder with [facility], pt's weekly cost is $435.81. The office called pt and she accepted the cost. Home health is set up with [facility]. They will be able to see pt tomorrow if she discharges today. Odette Irving RN with [facility] is on her way to provide teaching to pt. SAMANTHA Sharif was updated. HOME HEALTH DISCHARGE NOTE PATIENT ADDRESS WHERE SERVICE WILL BE RECEIVED: [address] [place] [id number] PATIENT CONTACT NUMBER: [phone] NAME OF [facility]: [facility] TELEPHONE/FAX NUMBER OF COMPANY: [phone] / [phone] ADDRESS OF [employer]: [address] [place] [address], [address], [place] [address] SERVICES TO RECEIVE: [facility] ANTICIPATED DATE SERVICES WILL BEGIN: September 04, 2019 Please call the company above if you have not received a call to schedule a home visit within 24 hours of discharge.
[2019-09-03 16:00] VITALS: BP 176/76
[2019-09-03] MEDS: ENOXAPARIN SOD INJ 40 MG/0.4 ML SYR SC SCH (16:43)
--- NOTE | 2019-09-03 18:00 | NUR ---
patient alert and oriented with family at bedside. discharge instructions given at this time, patient verbalized understanding. Patient to go home with PICC line for HH to give IV antibiotics. Patient to be wheeled out to personal auto for family to drive home.
== END 2019-09-03 18:26 | disposition home health service (06) | DRG 872 ==
LOC: ER 13:55 → ERHOLD 15:05 → MED/SURG2 21:26
PROVIDERS: ADMIT Family Medicine; ATTEND Family Medicine
PROC: 02HV33Z Insertion of Infusion Device into Superior Vena Cava, Percutaneous Approach (ICD-10-PCS; principal; 2019-09-03)
PROC: B548ZZA Ultrasonography of Superior Vena Cava, Guidance (ICD-10-PCS; 2019-09-03)
DX: A41.9 Sepsis, unspecified organism (principal); N39.0 Urinary tract infection, site not specified; D80.1 Nonfamilial hypogammaglobulinemia; I10 Essential (primary) hypertension; Z88.5 Allergy status to narcotic agent; Z88.2 Allergy status to sulfonamides; E03.9 Hypothyroidism, unspecified; Z85.3 Personal history of malignant neoplasm of breast; B95.2 Enterococcus as the cause of diseases classified elsewhere; B96.5 Pseudomonas (aeruginosa) (mallei) (pseudomallei) as the cause of diseases classified elsewhere; D70.9 Neutropenia, unspecified; K76.0 Fatty (change of) liver, not elsewhere classified; D64.9 Anemia, unspecified; E88.09 Other disorders of plasma-protein metabolism, not elsewhere classified; E77.8 Other disorders of glycoprotein metabolism; E87.6 Hypokalemia
CPT/HCPCS: 36415; 36569; 71045; 74177; 80048; 80053; 80202; 81001; 82550; 82553; 82948; 83518; 83605; 83690; 83735; 83880; 84100; 84443; 84484; 85025; 85610; 85730; 87040; 87070; 87086; 87186; 87400; 93005; 96361; 97139; 99284; J1442; J1650; J1720; J2405; J3370; J7030; J7042; Q9967

== ENCOUNTER → 2020-07-17 | Outpatient (CLI) | payer MEDICARE, OTHER ==
[~2020-07-17] MED LIST changes: +LOVASTATIN20 MG PO
--- NOTE | 2020-07-17 13:35 | Diagnostic Imaging Report ---
Bilateral knees, 3 views each INDICATION: ^[id number] ^[id number] ^ARTHRITIS PAIN Comparison: None available. Discussion: Multiple views of the bilateral knees are negative for acute displaced fracture or dislocation. Negative for suprapatellar joint effusion. Joint spaces are well maintained. Enthesophyte is noted at the insertion of the quadriceps tendon onto the superior patella. Negative for radiopaque foreign body within the overlying soft tissues. IMPRESSION: Negative for acute displaced fracture or dislocation of the bilateral knees. No significant joint space narrowing or osteophyte formation is noted bilaterally. Signed by: Christiano Duron MD on 07/17/2020 1:32 PM
== END ==
LOC: RAD 12:19
PROVIDERS: ATTEND Internal Medicine Medical Oncology
DX: M17.0 Bilateral primary osteoarthritis of knee (principal)

== ENCOUNTER → 2020-12-22 | Outpatient (CLI) | payer MEDICARE, OTHER | LOC: MAMMO 09:38 | PROVIDERS: ATTEND Family Medicine | DX: Z12.31 Encounter for screening mammogram for malignant neoplasm of breast (principal) | CPT/HCPCS: 77067 ==

== ENCOUNTER 2021-01-16 08:21 | Emergency (ER) | payer MEDICARE, OTHER ==
[~2021-01-16] VITALS: Ht 154.9 cm; Wt 61.2 kg
== END 2021-01-16 08:50 | disposition home or self-care (01) ==
LOC: ER 08:50
DX: L02.414 Cutaneous abscess of left upper limb (principal); I10 Essential (primary) hypertension; E78.5 Hyperlipidemia, unspecified; E03.9 Hypothyroidism, unspecified; Z85.72 Personal history of non-Hodgkin lymphomas
CPT/HCPCS: 99283

== ENCOUNTER → 2021-12-31 | Outpatient (CLI) | payer MEDICARE, OTHER | LOC: MAMMO 08:02 | PROVIDERS: ATTEND Family Medicine | DX: Z12.31 Encounter for screening mammogram for malignant neoplasm of breast (principal) | CPT/HCPCS: 77067 ==

== ENCOUNTER → 2023-01-05 | Outpatient (CLI) | payer MEDICARE, OTHER | LOC: MAMMO 08:45 | PROVIDERS: ATTEND Family Medicine | DX: Z12.31 Encounter for screening mammogram for malignant neoplasm of breast (principal); M81.0 Age-related osteoporosis without current pathological fracture | CPT/HCPCS: 77067; 77080 ==

== ENCOUNTER → 2025-01-15 | Outpatient (REF) | payer MEDICARE, OTHER | LOC: MAMMO 08:45 | PROVIDERS: ATTEND Family Medicine | DX: Z12.31 Encounter for screening mammogram for malignant neoplasm of breast (principal) | CPT/HCPCS: 77067 ==